=== PATIENT | male | born 1990 | race Caucasian/White ===

== ENCOUNTER 2020-06-17 15:53 | Emergency (ER) | payer OTHER, SELFPAY ==
--- NOTE | 2020-06-17 | CT_ITS ---
EXAMINATION: CT HEAD WITHOUT CONTRAST CT CERVICAL SPINE WITHOUT CONTRAST CLINICAL INFORMATION: Fall. Trauma to the head COMPARISON: CT head 03/16/2020 TECHNIQUE: Imaging was performed from the skull base to vertex without intravenous administration of contrast. In addition, helical noncontrast CT imaging was acquired through the cervical spine and source images were reviewed along with axial reconstructions and sagittal and coronal MPRs. [This CT examination was performed using dose optimization techniques as appropriate, variously including the following: *Automated exposure control *Adjustment of mA and/or kV according to patient size (this includes techniques or standardized protocols for targeted exams where dose is matched to indication/reason for exam; i.e. extremities or head) *Use of iterative reconstruction technique] DLP: 866 mGy-cm FINDINGS: HEAD: No intracranial mass, hemorrhage, or midline shift is visualized. The ventricles and sulci are age-appropriate. No extra-axial collections are identified. The paranasal sinuses and mastoid air cells are well aerated. CERVICAL SPINE: There is no evidence of acute cervical spine fracture. Vertebral bodies remain normal in height. Cervical vertebrae have normal alignment. The cervical disc heights are normal. The facet joints are normal. No pre- or paravertebral soft tissue abnormality is identified. Limited assessment of the lung apices is unremarkable. IMPRESSION: 1. No acute intracranial pathology. 2. No CT evidence of acute cervical spine fracture or traumatic subluxation
[2020-06-17 16:06] VITALS: BP 135/82; PULSE 120; PULSE 130; RESP 20; TEMP 37.4; O2SAT 96; O2SAT 99; BMI 35.6
[2020-06-17 16:17] VITALS: BP 135/81; PULSE 116; RESP 18; TEMP 37.3; O2SAT 100; BMI 35.6
--- NOTE | 2020-06-17 16:54 | ED_ITS ---
HPI - Seizure General Chief Complaint: Seizure Stated Complaint: seizure Time Seen by Provider: 06/17/20 16:32 Source: EMS and other (staff at facility ) Mode of arrival: ambulatory Limitations: language barrier, altered mental status (minimally verbal which is his baseline ) and physical limitation History of Present Illness complaint: seizure Onset (ago): hour(s) (1.5 hours ago ) Description of Episode: loss of consciousness, tonic-clonic movement and bladder incontinence Duration of episode: 1 -: minutes(s) Witnessed: Yes - by Bystander Trauma: Yes Seizure History: Yes Place: Home Associated symptoms: denies other symptoms Treatments prior to arrival: none Related Data Allergies Allergy/AdvReac Type Severity Reaction Status Date / Time No Known Allergies Allergy Unverified 06/03/20 17:21 [No Known Allergies*] Review of Systems Review of Systems: Yes Unobtainable due to mental condition [facility] Past Medical History Medical History Autism Seizures Social History Social History Advance Directives: No Advance Directives Information Provided: No Physical Exam Vital Signs and I&O and Narrative: Vital Signs and I&O: Vital Signs Temp 99.5 F 06/17/20 18:50 Pulse 109 H 06/17/20 18:50 Resp 16 06/17/20 18:50 BP 155/99 H 06/17/20 18:50 Pulse Ox 94 06/17/20 18:50 Intake & Output 06/17/20 06/17/20 06/18/20 06:59 18:59 06:59 Weight 112.829 kg Body Mass Index 35.6 Course Course Hospital Course: No further seizure activity here. No established etiology at this time. No signs of infection. He has a seizure record with him and has several seizures per year per his records. He is starting to get overstimulated here and his staff member from his facility would like to take him home. Metabolic workup unremarkable and CT head/neck were negative. Stable for discharge with plan to follow up with his Neurologist. MDM - Seizure MDM Narrative Medical decision making narrative: known seizure disorder - on Trileptal and Vimpat. unlikely he missed a dose at facility. will r/o infectious etiology Differential Diagnosis Differential diagnosis: Likely intractable seizure disorder, generalized seizure and epileptic seizure Medical Records Attestation: I reviewed the patient's medical records. Lab Data Result diagrams: 06/17/20 17:30 06/17/20 17:30 Labs: Lab Results 06/17/20 06/17/20 06/17/20 Range/Units 17:30 17:30 17:56 WBC 11.4 H (4.8-10.8) X10*3/uL RBC 6.07 H (4.60-5.80) X10*6/uL Hgb 16.0 (14.0-18.0) g/dl Hct 47.1 (42-52) % MCV 77.6 L (80-98) fL MCH 26.4 L (27.0-33.0) pg MCHC 34.0 (31.0-36.0) g/dl RDW 13.2 (11.0-16.0) % Plt Count 261 (160-400) X10*3/uL MPV 9.2 L (9.4-12.4) fL Immature Gran % (Auto) 1.1 H (0.0-0.4) % Neut % (Auto) 84.0 H (45-73) % Lymph % (Auto) 8.1 L (20-40) % [place] % (Auto) 6.0 (2-11) % Eos % (Auto) 0.4 (0-4) % Baso % (Auto) 0.4 (0-2) % Neut # (Auto) 9.6 H (2.0-8.3) X10*3/uL Lymph # (Auto) 0.9 L (1.2-4.9) X10*3/uL [place] # (Auto) 0.7 (0.1-1.2) X10*3/uL Eos # (Auto) 0.0 (0.0-0.4) X10*3/uL Baso # (Auto) 0.1 (0.0-0.2) X10*3/uL Abs Immat Gran (auto) 0.12 H (0.00-0.03) X10*3/uL Absolute Nucleated RBC 0.000 (0.0-0.012) X10*3/uL Nucleated RBC % (auto) 0.0 (0.0-0.2) /100WBC Sodium 134 L (135-145) mmol/L Potassium 3.8 (3.3-5.1) mmol/l Chloride 102 (96-108) mmol/L Carbon Dioxide 24 (22-29) mmol/L Anion Gap 12 (12-20) BUN 11 (9-16) mg/dL Creatinine 0.94 (0.5-1.4) mg/dL Estim Creat Clear Calc 143.2 Estimated GFR > 60 POC Glucose (60-115) mg/dL Random Glucose 108 (60-115) mg/dL Calcium 9.0 (8.4-10.2) mg/dL Total Creatine Kinase 117 (38-174) U/L Urine Color YELLOW Urine Appearance CLEAR Urine pH 6.0 (5.0-8.0) Ur Specific [place] 1.015 (1.005-1.025) Urine Protein NEG (NEG-TRACE) MG/DL Urine Glucose (UA) NEG (NEG) MG/DL Urine Ketones NEG (NEG) MG/DL Urine Blood TRACE (NEG) Urine Nitrite NEG (NEG) Ur Leukocyte Esterase NEG (NEG) 06/17/20 Range/Units 18:53 WBC (4.8-10.8) X10*3/uL RBC (4.60-5.80) X10*6/uL Hgb (14.0-18.0) g/dl Hct (42-52) % MCV (80-98) fL MCH (27.0-33.0) pg MCHC (31.0-36.0) g/dl RDW (11.0-16.0) % Plt Count (160-400) X10*3/uL MPV (9.4-12.4) fL Immature Gran % (Auto) (0.0-0.4) % Neut % (Auto) (45-73) % Lymph % (Auto) (20-40) % [place] % (Auto) (2-11) % Eos % (Auto) (0-4) % Baso % (Auto) (0-2) % Neut # (Auto) (2.0-8.3) X10*3/uL Lymph # (Auto) (1.2-4.9) X10*3/uL [place] # (Auto) (0.1-1.2) X10*3/uL Eos # (Auto) (0.0-0.4) X10*3/uL Baso # (Auto) (0.0-0.2) X10*3/uL Abs Immat Gran (auto) (0.00-0.03) X10*3/uL Absolute Nucleated RBC (0.0-0.012) X10*3/uL Nucleated RBC % (auto) (0.0-0.2) /100WBC Sodium (135-145) mmol/L Potassium (3.3-5.1) mmol/l Chloride (96-108) mmol/L Carbon Dioxide (22-29) mmol/L Anion Gap (12-20) BUN (9-16) mg/dL Creatinine (0.5-1.4) mg/dL Estim Creat Clear Calc Estimated GFR POC Glucose 101 (60-115) mg/dL Random Glucose (60-115) mg/dL Calcium (8.4-10.2) mg/dL Total Creatine Kinase (38-174) U/L Urine Color Urine Appearance Urine pH (5.0-8.0) Ur Specific [place] (1.005-1.025) Urine Protein (NEG-TRACE) MG/DL Urine Glucose (UA) (NEG) MG/DL Urine Ketones (NEG) MG/DL Urine Blood (NEG) Urine Nitrite (NEG) Ur Leukocyte Esterase (NEG) Discharge Plan Discharge Clinical Impression: Epileptic seizure Qualifiers: Epilepsy type: other generalized Intractability: not intractable Status epilepticus: without status epilepticus Qualified Code(s): G40.409 - Other generalized epilepsy and epileptic syndromes, not intractable, without status epilepticus Patient Disposition: Xfer LTC Instructions: Epilepsy (ED) Additional Instructions: Follow up with your Neurologist this week. Continue to take your anti-seizure medications as prescribed. Return to the ER if seizures recur.
--- NOTE | 2020-06-17 17:34 | PC.NURSE ---
REPORTING BELLY PAIN 10/10 MLP AWARE.
[2020-06-17] MEDS: Morphine Sulfate 4 MG/ML CARTRIDGE IVPUSH (17:41)
[2020-06-17] MEDS: OXcarbazepine 300 MG TABLET 600 MG PO (17:42)
[2020-06-17] MEDS: 0.9 % Sodium Chloride 1,000 ML 999 ML IVCONT (17:43)
[2020-06-17 17:44] LABS: MANUAL DIFF FLAG NO
[2020-06-17 17:49] LABS: Basophils Absolute Auto 0.1 X10*3/uL (0.0-0.2); Basophils Percent Auto 0.4 % (0-2); Eosinophils Percent Auto 0.4 % (0-4); Hematocrit 47.1 % (42-52); Imm Gran Abs Auto 0.12 X10*3/uL (0.00-0.03); Imm Gran Pct Auto 1.1 % (0.0-0.4); Lymphocytes Absolute Auto 0.9 X10*3/uL (1.2-4.9); Lymphocytes Percent Auto 8.1 % (20-40); Mean Corpuscular Hemoglobin 26.4 pg (27.0-33.0); Mean Corpuscular Volume 77.6 fL (80-98); Mean Platelet Volume 9.2 fL (9.4-12.4); Monocytes Absolute Auto 0.7 X10*3/uL (0.1-1.2); Neutrophils Absolute Auto 9.6 X10*3/uL (2.0-8.3); Platelet Count 261 X10*3/uL (160-400); Red Blood Count 6.07 X10*6/uL (4.60-5.80); Red Cell Distribution Width 13.2 % (11.0-16.0); White Blood Count 11.4 X10*3/uL (4.8-10.8)
[2020-06-17 18:13] LABS: Anion Gap 12 (12-20); Blood Urea Nitrogen 11 mg/dL (9-16); Carbon Dioxide 24 mmol/L (22-29); Chloride 102 mmol/L (96-108); Creatinine Clr Calc Pharmacy 143.2; Estimated Glomerular Filt Rate > 60; Glucose Random 108 mg/dL (60-115); Potassium 3.8 mmol/l (3.3-5.1); Sodium 134 mmol/L (135-145)
[2020-06-17 18:43] LABS: Glucose Urine UA NEG (NEG); Leukocyte Esterase Urine NEG (NEG); Nitrite Urine NEG (NEG); Specific Gravity - Urine 1.015 (1.005-1.025); UACC Culture Trigger NO; Urine Blood TRACE (NEG); Urine Ketones NEG (NEG); Urine Protein NEG (NEG-TRACE)
[2020-06-17 18:46] LABS: Appearance Urine CLEAR; Color Urine YELLOW
[2020-06-17 18:50] VITALS: BP 155/99; PULSE 109; RESP 16; TEMP 37.5; O2SAT 94
[2020-06-17 18:57] LABS: Glucose, Whole Blood 101 mg/dL (60-115)
[2020-06-17] MEDS: Lacosamide 100 MG TABLET PO (19:19)
== END 2020-06-17 19:24 ==
PROVIDERS: Physician Assistant; Emergency Provider Emergency Medicine Emergency Medical Services; PCP Internal Medicine
DX: G40.409 Other generalized epilepsy and epileptic syndromes, not intractable, without status epilepticus (principal); Z79.899 Other long term (current) drug therapy
CPT/HCPCS: 36415; 70450; 72125; 80048; 81003; 82550; 82947; 85025; 96361; 96374; 99283; 99284

== ENCOUNTER 2021-04-28 09:34 | Emergency (ER) | payer OTHER, SELFPAY ==
--- NOTE | 2021-04-28 | ECG_ITS ---
Test Reason : SEIZURE Blood Pressure : / mmHG Vent. Rate : 096 BPM Atrial Rate : 096 BPM P-R Int : 152 ms QRS Dur : 096 ms QT Int : 342 ms P-R-T Axes : 047 -24 026 degrees QTc Int : 432 ms Normal sinus rhythm Minimal voltage criteria for LVH, may be normal variant Borderline ECG When compared with ECG of 17-AUG-2018 12:28, No significant change was found Referred By: Generic ED Physician Electronically Signed By:OLGA NAVARRO MD
--- NOTE | ~2021-04-28 | CT_ITS ---
EXAMINATION: CT HEAD WITHOUT CONTRAST CLINICAL INFORMATION: Head injury, seizure. COMPARISON: None TECHNIQUE: Contiguous axial imaging was performed from the skull base to vertex without intravenous administration of contrast. This CT examination was performed using dose optimization techniques as appropriate, variously including the following: *Automated exposure control *Adjustment of mA and/or kV according to patient size (this includes techniques or standardized protocols for targeted exams where dose is matched to indication/reason for exam; i.e. extremities or head) *Use of iterative reconstruction technique DLP: 845 mGy-cm FINDINGS: There is no evidence of acute intracranial hemorrhage or territorial infarction. No abnormal mass effect or midline shift is seen. Reeves to white matter differentiation is well preserved. No extra-axial fluid collections are identified. The ventricles are normal in size. There is no abnormal attenuation within the brain parenchyma. The osseous structures and soft tissues are normal. The mastoid air cells and visualized portions of the paranasal sinuses are well aerated. CT/CT head/brain wo con IMPRESSION: No acute intracranial process seen
[2021-04-28 10:27] VITALS: BP 119/88; PULSE 84; RESP 16; TEMP 36.9; O2SAT 99; BMI 33.8
--- NOTE | 2021-04-28 10:48 | ED.GENADULT ---
HPI - General Adult General Chief complaint: Seizure Stated complaint: fall Time Seen by Provider: 04/28/21 10:48 History of Present Illness HPI narrative: 30-year-old male with past medical history of seizure. Patient is a [facility] patient was going to the bathroom to take a shower, when he fell. Staff member found patient laying between the toilet bowl and the wall where he had about 1 minutes seizure. Patient had left side of his head and right arm. Patient denies LOC. complaining of headache. Patient is very difficult to get any history from. [facility] staff with patient and reports that patient is acting himself. No other neural deficits Related Data Home Medications Medication Instructions Recorded Confirmed acetaminophen 325 mg tablet (Mapap 650 mg PO Q6H PRN 04/28/21 04/28/21 (acetaminophen)) aripiprazole 2 mg tablet (Abilify) 2 mg PO DAILY@14 04/28/21 04/28/21 aripiprazole 5 mg tablet (Abilify) 5 mg PO DAILY 04/28/21 04/28/21 benztropine 0.5 mg tablet 0.5 mg PO BID 04/28/21 04/28/21 buspirone 10 mg tablet 20 mg PO TID 04/28/21 04/28/21 [id number]-[id number] 1 tab PO Q6H PRN 04/28/21 04/28/21 50 mg-325 mg-40 mg tablet clonidine HCl 0.1 mg tablet 0.1 mg PO BID 04/28/21 04/28/21 diazepam 10 mg tablet (Valium) 10 mg PO USEASDIRECTD PRN 04/28/21 04/28/21 lacosamide 100 mg tablet 100 mg PO BID 04/28/21 04/28/21 multivitamin 1 tab PO DAILY 04/28/21 04/28/21 oxcarbazepine 600 mg tablet 600 mg PO TID 04/28/21 04/28/21 (Trileptal) Allergies Allergy/AdvReac Type Severity Reaction Status Date / Time No Known Allergies Allergy Unverified 06/03/20 17:21 [No Known Allergies*] Review of Systems Review of Systems: Constitutional : No Weight loss, No Fever, No Chills, No Night Sweats, No Fatigue, No Malaise ENT/Mouth : No Hearing loss, No Ear Pain, No Nasal Congestion, No Sinus Pain, No Hoarseness, No sore throat, No Rhinorrhea, No Swallowing Difficulty Eyes: No Eye Pain, No Swelling, No Redness, No Foreign Body, No Discharge, No Vision Changes Cardiovascular : No Chest Pain, No SOB, No Dyspnea on Exertion, No Orthopnea, No Edema, No Palpitations Respiratory : No Cough, No Sputum, No Wheezing, No Smoke Exposure, No Dyspnea Gastrointestinal : No Nausea, No Vomiting, No Diarrhea, No Constipation, No abdominal Pain, No Hematochezia, No Melena Genitourinary : no irregular bleeding, No Dysuria, No Urinary Frequency, No Hematuria, No Urinary Incontinence, No Urgency, No Flank Pain, No Urinary Flow Changes, No Hesitancy, penile pain and discharge Musculoskeletal : No joint pain, No Myalgias, No Joint Swelling Skin : No Skin Lesions, No rash Neuro : No Weakness, No Numbness, No Paresthesias, No Loss of Consciousness, No Dizziness, No Headache Psych : No Anxiety/Panic, No Depression, No SI/HI/AH/VH, No Social Issues, Heme/Lymph: No Bruising, No Bleeding,No Lymphadenopathy Endocrine : No Polyuria, No Polydipsia, No Temperature Intolerance PMFSH Past Medical History Medical History Autism Seizures Social History Social History Alcohol intake: never Patient Tobacco Use Status: Never used Tobacco Use of substances other than those prescribed or required for medical reasons: No Advance Directives: No Advance Directives Information Provided: Yes Physical Exam Vital Signs: Vital Signs: Last Vital Signs Temp 99.1 F 04/28/21 10:54 Pulse 95 04/28/21 10:54 Resp 24 H 04/28/21 10:54 BP 127/80 04/28/21 10:54 Pulse Ox 99 04/28/21 10:54 Body Mass Index 33.8 Const: General: healthy appearing, no acute distress and well developed Nutritional Appearance: well nourished Orientation/consciousness: oriented to person HENMT: Head: Yes normal to inspection, Yes normocephalic and Yes atraumatic General nose exam: Normal external nose present Face and sinus: Yes normal facial exam Mouth: Normal oral and palatal mucosa present Throat: Yes posterior oropharynx normal Eyes: General: appearance normal, both eyes and all related structures Eyelids: Yes eyelids normal Conjunctivae: conjunctivae normal Sclerae: sclerae normal Corneas: corneas normal Pupils: Equal, round and reactive pupils present EOM: EOMs intact bilaterally Neck: Neck: Yes normal visual inspection, Yes full ROM and Yes trachea midline Thyroid: Thyroid normal Chest: Chest palpation & inspection: normal inspection of the chest and normal palpation of entire chest wall Resp: Effort & Inspection: normal respiratory effort Auscultation: clear to auscultation bilaterally Cardio: Rate: regular rate Rhythm: regular rhythm GI: Inspection: Yes normal to inspection and No distended Palpation (GI): No hepatosplenomegaly present Auscultation: normal bowel sounds : General: Yes Bimanual renal exam normal bilaterally and Yes no CVA tenderness Back/Spine/Pelvis: Back: no CVA tenderness Cervical Spine: cervical ROM normal Thoracic/Lumbar Spine: thoracic and lumbar spine normal to inspection Pelvis: no pain with anterior-posterior compression Skin: General skin exam: elasticity normal, turgor normal and dry skin Neuro: General: oriented to person Cranial nerves: Yes Equal, round and reactive pupils present Course Course Course Narrative: 30 years old male from [facility] after seizure activity that was witnessed by staff member. Patient did hit his head will get an CT of the head. Right upper arm abrasion. Will get basic labs. Reevaluation(s) Reevaluation #1: CT of the had normal, all labs normal. Patient is acting normal per staff member. We will send him back to [facility] and patient can follow up with his neurologist for possible med adjustment. This was his 2nd seizure in the last 3 months. Medical Decision Making Lab Data Result diagrams: 04/28/21 11:14 04/28/21 11:14 Labs: Lab Results 04/28/21 04/28/21 04/28/21 Range/Units 11:14 11:14 11:17 WBC 9.5 (4.8-10.8) X10*3/uL RBC 6.04 H (4.60-5.80) X10*6/uL Hgb 15.9 (14.0-18.0) g/dl Hct 47.2 (42-52) % MCV 78.1 L (80-98) fL MCH 26.3 L (27.0-33.0) pg MCHC 33.7 (31.0-36.0) g/dl RDW 13.4 (11.0-16.0) % Plt Count 264 (160-400) X10*3/uL MPV 9.1 L (9.4-12.4) fL Immature Gran % (Auto) 0.8 H (0.0-0.4) % Neut % (Auto) 85.3 H (45-73) % Lymph % (Auto) 7.8 L (20-40) % [place] % (Auto) 5.5 (2-11) % Eos % (Auto) 0.2 (0-4) % Baso % (Auto) 0.4 (0-2) % Lymph # (Auto) 0.7 L (1.2-4.9) X10*3/uL [place] # (Auto) 0.5 (0.1-1.2) X10*3/uL Eos # (Auto) 0.0 (0.0-0.4) X10*3/uL Baso # (Auto) 0.0 (0.0-0.2) X10*3/uL Abs Immat Gran (auto) 0.08 H (0.00-0.03) X10*3/uL Absolute Neuts (auto) 8.1 (2.0-8.3) X10*3/uL Absolute Nucleated RBC 0.000 (0.0-0.012) X10*3/uL Nucleated RBC % (auto) 0.0 (0.0-0.2) /100WBC Sodium 135 (135-145) mmol/L Potassium 4.4 (3.3-5.1) mmol/L Chloride 103 (96-108) mmol/L Carbon Dioxide 23 (22-29) mmol/L Anion Gap 13 (12-20) BUN 11 (9-16) mg/dL Creatinine 0.85 (0.5-1.4) mg/dL Estim Creat Clear Calc 152.8 Estimated GFR > 60 POC Glucose 95 (60-115) mg/dL Random Glucose 97 (60-115) mg/dL Calcium 9.7 D (8.4-10.2) mg/dL Urine Color Urine Appearance Urine pH (5.0-8.0) Ur Specific [place] (1.005-1.025) Urine Protein (NEG-TRACE) MG/DL Urine Glucose (UA) (NEG) MG/DL Urine Ketones (NEG) MG/DL Urine Blood (NEG) Urine Nitrite (NEG) Ur Leukocyte Esterase (NEG) Urine RBC (0) /HPF Urine WBC (0-4) /HPF Ur Squamous Epith Cells /LPF Urine Bacteria /LPF 04/28/21 Range/Units 11:44 WBC (4.8-10.8) X10*3/uL RBC (4.60-5.80) X10*6/uL Hgb (14.0-18.0) g/dl Hct (42-52) % MCV (80-98) fL MCH (27.0-33.0) pg MCHC (31.0-36.0) g/dl RDW (11.0-16.0) % Plt Count (160-400) X10*3/uL MPV (9.4-12.4) fL Immature Gran % (Auto) (0.0-0.4) % Neut % (Auto) (45-73) % Lymph % (Auto) (20-40) % [place] % (Auto) (2-11) % Eos % (Auto) (0-4) % Baso % (Auto) (0-2) % Lymph # (Auto) (1.2-4.9) X10*3/uL [place] # (Auto) (0.1-1.2) X10*3/uL Eos # (Auto) (0.0-0.4) X10*3/uL Baso # (Auto) (0.0-0.2) X10*3/uL Abs Immat Gran (auto) (0.00-0.03) X10*3/uL Absolute Neuts (auto) (2.0-8.3) X10*3/uL Absolute Nucleated RBC (0.0-0.012) X10*3/uL Nucleated RBC % (auto) (0.0-0.2) /100WBC Sodium (135-145) mmol/L Potassium (3.3-5.1) mmol/L Chloride (96-108) mmol/L Carbon Dioxide (22-29) mmol/L Anion Gap (12-20) BUN (9-16) mg/dL Creatinine (0.5-1.4) mg/dL Estim Creat Clear Calc Estimated GFR POC Glucose (60-115) mg/dL Random Glucose (60-115) mg/dL Calcium (8.4-10.2) mg/dL Urine Color YELLOW Urine Appearance CLEAR Urine pH 6.5 (5.0-8.0) Ur Specific [place] 1.015 (1.005-1.025) Urine Protein NEG (NEG-TRACE) MG/DL Urine Glucose (UA) NEG (NEG) MG/DL Urine Ketones NEG (NEG) MG/DL Urine Blood TRACE (NEG) Urine Nitrite NEG (NEG) Ur Leukocyte Esterase NEG (NEG) Urine RBC 0-2 (0) /HPF Urine WBC 0 (0-4) /HPF Ur Squamous Epith Cells TRACE /LPF Urine Bacteria TRACE /LPF Imaging Data CT scan - head: Radiologist's impression: FINDINGS: There is no evidence of acute intracranial hemorrhage or territorial infarction. No abnormal mass effect or midline shift is seen. [place] to white matter differentiation is well preserved. No extra-axial fluid collections are identified. The ventricles are normal in size. There is no abnormal attenuation within the brain parenchyma. The osseous structures and soft tissues are normal. The mastoid air cells and visualized portions of the paranasal sinuses are well aerated. ? ECG Data Interpretation: Heart rate 96, normal sinus, GA 0.15, QTC 432 no significant change found when compared with EKG from August 17, 2018 Discharge Plan Discharge Clinical Impression: Epileptic seizure Qualifiers: Epilepsy type: unspecified Intractability: not intractable Status epilepticus: without status epilepticus Qualified Code(s): G40.909 - Epilepsy, unspecified, not intractable, without status epilepticus Patient Disposition: Home, Self-Care Instructions: Epilepsy (ED) Additional Instructions: You were seen here today for seizure. This was your 2nd seizure in the last 3 months. Please follow-up with your neurologist and and 2-3 day for possible med adjustment. Your CT of the head was normal, your EKG was normal, as well as your lab work. You may return to emergency department if you have any concerning symptoms. Prescriptions: No Action multivitamin Tablet 1 tab PO DAILY RF: 0 clonidine HCl [Catapres] 0.1 mg Tablet 0.1 mg PO BID RF: 0 acetaminophen [Mapap (acetaminophen)] 325 mg Tablet 650 mg PO Q6H PRN (Reason: Pain) RF: 0 benztropine [Cogentin] 0.5 mg Tablet 0.5 mg PO BID RF: 0 [id number] [Fioricet] 50-325-40 mg Tablet 1 tab PO Q6H PRN (Reason: Headache) RF: 0 buspirone [BuSpar] 10 mg Tablet 20 mg PO TID RF: 0 oxcarbazepine [Trileptal] 600 mg Tablet 600 mg PO TID RF: 0 diazepam [Valium] 10 mg Tablet 10 mg PO USEASDIRECTD PRN (Reason: PRIOR TO MD APPT) RF: 0 aripiprazole [Abilify] 5 mg Tablet 5 mg PO DAILY RF: 0 aripiprazole [Abilify] 2 mg Tablet 2 mg PO DAILY@14 RF: 0 lacosamide 100 mg Tablet 100 mg PO BID RF: 0 Interventions: ED Discharge Assessment Last Done: 04/28/21 12:39 Discharge Date/Time: 04/28/21 12:39
[2021-04-28 10:54] VITALS: BP 127/80; PULSE 95; RESP 24; TEMP 37.3; O2SAT 99
[2021-04-28 11:22] LABS: Glucose, Whole Blood 95 mg/dL (60-115)
[2021-04-28 11:23] LABS: MANUAL DIFF FLAG NO
[2021-04-28 11:24] LABS: Basophils Percent Auto 0.4 % (0-2); Eosinophils Percent Auto 0.2 % (0-4); Hematocrit 47.2 % (42-52); Hemoglobin 15.9 g/dl (14.0-18.0); Imm Gran Abs Auto 0.08 X10*3/uL (0.00-0.03); Imm Gran Pct Auto 0.8 % (0.0-0.4); Lymphocytes Absolute Auto 0.7 X10*3/uL (1.2-4.9); Lymphocytes Percent Auto 7.8 % (20-40); Mean Corpuscular HGB Conc 33.7 g/dl (31.0-36.0); Mean Corpuscular Hemoglobin 26.3 pg (27.0-33.0); Mean Corpuscular Volume 78.1 fL (80-98); Mean Platelet Volume 9.1 fL (9.4-12.4); Monocytes Absolute Auto 0.5 X10*3/uL (0.1-1.2); Monocytes Percent Auto 5.5 % (2-11); Neutrophils Absolute Auto 8.1 X10*3/uL (2.0-8.3); Neutrophils Percent Auto 85.3 % (45-73); Platelet Count 264 X10*3/uL (160-400); Red Blood Count 6.04 X10*6/uL (4.60-5.80); Red Cell Distribution Width 13.4 % (11.0-16.0); White Blood Count 9.5 X10*3/uL (4.8-10.8)
[2021-04-28 11:46] LABS: Anion Gap 13 (12-20); Blood Urea Nitrogen 11 mg/dL (9-16); Calcium 9.7 mg/dL (8.4-10.2); Carbon Dioxide 23 mmol/L (22-29); Chloride 103 mmol/L (96-108); Creatinine Clr Calc Pharmacy 152.8; Estimated Glomerular Filt Rate > 60; Glucose Random 97 mg/dL (60-115); Potassium 4.4 mmol/L (3.3-5.1); Sodium 135 mmol/L (135-145)
[2021-04-28 11:56] LABS: Glucose Urine UA NEG (NEG); Leukocyte Esterase Urine NEG (NEG); Nitrite Urine NEG (NEG); PH 6.5 (5.0-8.0); Specific Gravity - Urine 1.015 (1.005-1.025); UACC Culture Trigger NO; Urine Blood TRACE (NEG); Urine Ketones NEG (NEG); Urine Protein NEG (NEG-TRACE)
[2021-04-28 12:01] LABS: Appearance Urine CLEAR; Color Urine YELLOW
[2021-04-28 12:10] LABS: Bacteria Urine TRACE /LPF; RBC Urine 0-2 /HPF (0); Squamous Epithelial Cell Urine TRACE /LPF; WBC Urine 0 /HPF (0-4)
== END 2021-04-28 12:39 | disposition home or self-care (01) ==
PROVIDERS: Nurse Practitioner Family; Emergency Provider Emergency Medicine; PCP Internal Medicine
DX: G40.909 Epilepsy, unspecified, not intractable, without status epilepticus (principal); S40.811A Abrasion of right upper arm, initial encounter; W17.89XA Other fall from one level to another, initial encounter; F84.0 Autistic disorder; Y93.E8 Activity, other personal hygiene; Y92.041 Bathroom in boarding-house as the place of occurrence of the external cause; Y99.9 Unspecified external cause status; Z79.899 Other long term (current) drug therapy
CPT/HCPCS: 36415; 70450; 80048; 81001; 81003; 82947; 85025; 93005; 99284

== ENCOUNTER 2021-04-28 13:18 | Observation (INO) | payer OTHER, SELFPAY ==
[2021-04-28] VITALS (7 sets, daily range): BP systolic 127–170; BP diastolic 77–91; PULSE 110–134; RESP 14–20; TEMP 36.1–37.3; O2SAT 96–97; BMI 33.7; BMI 33.0
--- NOTE | 2021-04-28 | ECG_ITS ---
Test Reason : tachycardic Blood Pressure : / mmHG Vent. Rate : 119 BPM Atrial Rate : 119 BPM P-R Int : 154 ms QRS Dur : 102 ms QT Int : 326 ms P-R-T Axes : 000 205 144 degrees QTc Int : 458 ms Poor data quality, interpretation may be adversely affected -limb lead reversal Sinus tachycardia Right superior axis deviation Nonspecific ST and T wave abnormality Abnormal ECG When compared with ECG of same day, apart of limb lead reversal no other changes. Referred By: Sierra Rod Electronically Signed By:KIRILL VALLE
--- NOTE | 2021-04-28 14:18 | ED.GENADULT ---
HPI - General Adult General Chief complaint: Seizure Stated complaint: seizure Time Seen by Provider: 04/28/21 14:14 History of Present Illness HPI narrative: 30-year-old male here today for 2nd witnessed seizure. Patient has had his 1st seizure this morning fell and hit his head seen in the emergency department, lab work and CT of the head normal. Patient had no seizure while in the emergency department. Staff member witnessed patient having a seizure when getting into the van. Patient slumped over, had tremors and bit his tongue. The whole seizure lasted 35 seconds. Patient is on Trileptal 3 times a day. Dose of Abilify was increased recently, 5 mg every morning and 2mg added at 2:00 p.m. patient is on Trileptal 600 mg 3 times a day and lacosamide 100 mg 2 times a day. Patient sees neurologist Dr. Reese Hemphill in [place]. No new changes in his medication. Related Data Home Medications Medication Instructions Recorded Confirmed acetaminophen 325 mg tablet (Mapap 650 mg PO Q6H PRN 04/28/21 04/28/21 (acetaminophen)) aripiprazole 2 mg tablet (Abilify) 2 mg PO DAILY@14 04/28/21 04/28/21 aripiprazole 5 mg tablet (Abilify) 5 mg PO DAILY 04/28/21 04/28/21 benztropine 0.5 mg tablet 0.5 mg PO BID 04/28/21 04/28/21 buspirone 10 mg tablet 20 mg PO TID 04/28/21 04/28/21 newqedtlvz-ohhmawdwviaej-amuojjfz 1 tab PO Q6H PRN 04/28/21 04/28/21 50 mg-325 mg-40 mg tablet clonidine HCl 0.1 mg tablet 0.1 mg PO BID 04/28/21 04/28/21 diazepam 10 mg tablet (Valium) 10 mg PO USEASDIRECTD PRN 04/28/21 04/28/21 lacosamide 100 mg tablet 100 mg PO BID 04/28/21 04/28/21 multivitamin 1 tab PO DAILY 04/28/21 04/28/21 oxcarbazepine 600 mg tablet 600 mg PO TID 04/28/21 04/28/21 (Trileptal) Allergies Allergy/AdvReac Type Severity Reaction Status Date / Time No Known Allergies Allergy Unverified 06/03/20 17:21 [No Known Allergies*] Review of Systems Review of Systems: Review of Systems Constitutional : No Weight loss, No Fever, No Chills, No Night Sweats, No Fatigue, No Malaise ENT/Mouth : No Hearing loss, No Ear Pain, No Nasal Congestion, No Sinus Pain, No Hoarseness, No sore throat, No Rhinorrhea, No Swallowing Difficulty, complaining frontal lobe pain headache Eyes: No Eye Pain, No Swelling, No Redness, No Foreign Body, No Discharge, No Vision Changes Cardiovascular : No Chest Pain, No SOB, No Dyspnea on Exertion, No Orthopnea, No Edema, No Palpitations Respiratory : No Cough, No Sputum, No Wheezing, No Smoke Exposure, No Dyspnea Gastrointestinal : No Nausea, No Vomiting, No Diarrhea, No Constipation, No abdominal Pain, No Hematochezia, No Melena Genitourinary : no irregular bleeding, No Dysuria, No Urinary Frequency, No Hematuria, No Urinary Incontinence, No Urgency, No Flank Pain, No Urinary Flow Changes, No Hesitancy, penile pain and discharge Musculoskeletal : No joint pain, No Myalgias, No Joint Swelling Skin : No Skin Lesions, No rash Neuro : No Weakness, No Numbness, No Paresthesias, No Loss of Consciousness, No Dizziness, No Headache Psych : No Anxiety/Panic, No Depression, No SI/HI/AH/VH, No Social Issues, Heme/Lymph: No Bruising, No Bleeding,No Lymphadenopathy Endocrine : No Polyuria, No Polydipsia, No Temperature Intolerance PMFSH Past Medical History Medical History Autism Seizures Social History Social History Alcohol intake: never Patient Tobacco Use Status: Never used Tobacco Use of substances other than those prescribed or required for medical reasons: No Advance Directives: No Advance Directives Information Provided: Yes Physical Exam Vital Signs: Vital Signs: Last Vital Signs Temp 98.4 F 04/28/21 15:48 Pulse 114 H 04/28/21 15:48 Resp 16 04/28/21 15:48 BP 129/84 04/28/21 15:48 Pulse Ox 96 04/28/21 15:48 Body Mass Index 33.7 Const: General: healthy appearing, no acute distress and well developed Nutritional Appearance: well nourished Orientation/consciousness: patient oriented x3 HENMT: Head: Yes normal to inspection, Yes normocephalic and Yes atraumatic General nose exam: Normal external nose present Face and sinus: Yes normal facial exam Mouth: Normal oral and palatal mucosa present Throat: Yes posterior oropharynx normal Eyes: General: appearance normal, both eyes and all related structures Neck: Neck: Yes normal visual inspection, Yes full ROM and Yes no JVD Chest: Chest palpation & inspection: normal inspection of the chest Resp: Effort & Inspection: normal respiratory effort Auscultation: clear to auscultation bilaterally Cardio: Rate: regular rate Rhythm: regular rhythm Heart sounds: S1 normal heart sound present, S2 normal heart sound present, no gallops, no murmurs and no rubs Peripheral pulses: Peripheral pulses 2+ throughout and radial pulses present GI: Inspection: Yes normal to inspection and No distended Palpation (GI): Soft to palpation, Firmness to palpation present (GI), nontender and no guarding Auscultation: normal bowel sounds : General: Yes no CVA tenderness Back/Spine/Pelvis: Back: no CVA tenderness Thoracic/Lumbar Spine: thoracic and lumbar spine normal to inspection Skin: General skin exam: elasticity normal, turgor normal and dry skin Neuro: General: patient oriented x3 and moves all extremities Extrem: General: Yes full ROM Shoulder/upper arm images: 1. Abrasion from fall earlier this morning Course Course Course Narrative: 30-year-old male with past medical history of seizures from [facility] was earlier seen in the ER and sent home. His CT scan and lab work was negative. Patient has been seen by Neurology in [place] no new seizure medications and no changes. Takes Trileptal 600 mg 3 times a day and lacosamide 100 mg 2 times a day. Recently they added Abilify 2 mg in the afternoon. No other changes. Patient reports to have headache Reevaluation(s) Reevaluation #1: Spoke to hospitalist for admission. Will add oxcarbazepine levels, COVID, will medicate patient with lorazepam. Awaiting admission Medical Decision Making Lab Data Labs: Lab Results 04/28/21 Range/Units 15:22 COVID-19 ([facility]) Negative (Negative) COVID-19 Clin Com See Note Discharge Plan Discharge Clinical Impression: Epileptic seizure Qualifiers: Epilepsy type: unspecified Intractability: not intractable Status epilepticus: without status epilepticus Qualified Code(s): G40.909 - Epilepsy, unspecified, not intractable, without status epilepticus Patient Disposition: Admitted As Inpatient
[2021-04-28] MEDS: LORazepam 2 MG/ML VIAL 1 MG IVPUSH (15:09)
--- NOTE | 2021-04-28 15:19 | PHA.MEDREC ---
Pharmacy Consult ? Medication Reconciliation Pharmacy has completed the medication reconciliation.
[2021-04-28 16:02] LABS: COVID-19 Test Negative (Negative)
[2021-04-28] MEDS: 0.9 % Sodium Chloride Flush 3 ML SYRINGE IVFLUSH ×2 (16:13→23:11)
[2021-04-28 17:48] LABS: Amphetamine Screen Urine Not Detected (Not Detect); Barbiturates, Urine Not Detected (Not Detect); Benzodiazepines Screen Urine Not Detected (Not Detect); Cannabinoid Screen Urine Not Detected (Not Detect); Cocaine Screen Urine Not Detected (Not Detect); Fentanyl, urine Not Detected (Not Detect); Opiate Screen Urine Not Detected (Not Detect); Phencyclidine Screen Urine Not Detected (Not Detect)
[2021-04-28] MEDS: Acetaminophen 325 MG TABLET 650 MG PO (19:11)
--- NOTE | 2021-04-28 19:21 | PC.NURSE ---
yelena smith at [phone]
--- NOTE | 2021-04-28 20:58 | PC.NURSE ---
Patient admitted under observation to Room 374 from ed via stretcher. Staff member at bedside from [facility]. Patient alert but does not answer most questions asked. At times, patient answers with 1-2 word answers. Per [facility] staff patient last had a seizure on February 20. Per [facility] staff, patient can take p.o. meds with water. Patient ambulated to bathroom, steady gait.
[2021-04-28] MEDS: OXcarbazepine 300 MG TABLET 600 MG PO (21:07)
[2021-04-28] MEDS: busPIRone HCl 10 MG TABLET 20 MG PO (21:07)
[2021-04-28] MEDS: Benztropine Mesylate 0.5 MG TABLET PO (21:08)
[2021-04-28] MEDS: Lacosamide 100 MG TABLET PO (21:08)
[2021-04-28] MEDS: cloNIDine HCL 0.1 MG TABLET PO (21:08)
--- NOTE | 2021-04-28 22:43 | PC.NURSE ---
Addendum entered by Xuan Juaregui RN 04/29/21 06:25: 0015; bp elevated 170/89, hr 123. Patient reported headache, prn fioricet administered. Dr. Rod notified regarding elevated bp. IV hydralazine ordered. Blood pressure monitored for an hour on 10 minute cycles. One hour later bp 131/65, hr 95 Addendum entered by Xuan Jauregui RN 04/28/21 23:35: Dr. Rod placed orders for STAT EKG, BMP, MAGNESIUM. EKG completed and picture sent to MD. Labs obtained and pending at this time. Original Note: Patient's heart rate has been running in 120's since patient arrived to unit. Patient was also tachy in ed prior to arriving to unit. Dr. Rod made aware.
[2021-04-29] VITALS (11 sets, daily range): BP systolic 128–165; BP diastolic 61–88; PULSE 90–118; RESP 16–18; TEMP 36.3–37.2; O2SAT 97–99
[2021-04-29] MEDS: Butalb/Acetamin/Caff 50/325/40 TABLET 1 TAB PO ×2 (00:05→09:00)
[2021-04-29 00:15] LABS: Anion Gap 16 (12-20); Blood Urea Nitrogen 11 mg/dL (9-16); Calcium 9.3 mg/dL (8.4-10.2); Carbon Dioxide 20 mmol/L (22-29); Chloride 104 mmol/L (96-108); Creatinine Clr Calc Pharmacy 135.1; Estimated Glomerular Filt Rate > 60; Glucose Random 155 mg/dL (60-115); Magnesium 2.2 mg/dL (1.6-2.6); Potassium 3.7 mmol/L (3.3-5.1); Sodium 136 mmol/L (135-145)
[2021-04-29] MEDS: hydrALAZINE HCl 20 MG/ML VIAL 5 MG IVPUSH (00:33)
[2021-04-29 00:52] LABS: Thyroid Stimulating Hormone 2.48 uIU/mL (0.32-4.0)
[2021-04-29 06:22] LABS: Hematocrit 44.3 % (42-52); Hemoglobin 15.1 g/dl (14.0-18.0); Mean Corpuscular HGB Conc 34.1 g/dl (31.0-36.0); Mean Corpuscular Hemoglobin 26.7 pg (27.0-33.0); Mean Corpuscular Volume 78.3 fL (80-98); Platelet Count 268 X10*3/uL (160-400); Red Blood Count 5.66 X10*6/uL (4.60-5.80); Red Cell Distribution Width 13.8 % (11.0-16.0); White Blood Count 8.2 X10*3/uL (4.8-10.8)
[2021-04-29 06:52] LABS: Anion Gap 13 (12-20); Blood Urea Nitrogen 12 mg/dL (9-16); Calcium 9.3 mg/dL (8.4-10.2); Carbon Dioxide 22 mmol/L (22-29); Chloride 106 mmol/L (96-108); Creatinine Clr Calc Pharmacy 156.5; Estimated Glomerular Filt Rate > 60; Glucose Random 95 mg/dL (60-115); Potassium 4.1 mmol/L (3.3-5.1); Sodium 137 mmol/L (135-145)
[2021-04-29] MEDS: Rivaroxaban 10 MG TABLET PO (09:00)
[2021-04-29] MEDS: Benztropine Mesylate 0.5 MG TABLET PO (09:00)
[2021-04-29] MEDS: ARIPiprazole 5 MG TABLET PO (09:00)
[2021-04-29] MEDS: OXcarbazepine 300 MG TABLET 600 MG PO ×2 (09:00→14:28)
[2021-04-29] MEDS: Multivitamin TABLET 1 TAB PO (09:01)
[2021-04-29] MEDS: busPIRone HCl 10 MG TABLET 20 MG PO ×2 (09:01→14:28)
[2021-04-29] MEDS: Lacosamide 100 MG TABLET PO (09:01)
[2021-04-29] MEDS: 0.9 % Sodium Chloride Flush 3 ML SYRINGE IVFLUSH (09:01)
[2021-04-29] MEDS: cloNIDine HCL 0.1 MG TABLET PO (09:01)
--- NOTE | 2021-04-29 10:08 | MHC.CM.PN ---
RANGEL 04/29, EMR REVIEWED PT ADMITTED FOR OBSERVATION FOR SEIZURE ACTIVITY, CM SPOKE W/PT'S [employer] CONNIE LUNDBERG AND REVIEWED MICKIE REPORTED PT RECEIVES ASSISTANCE W/CARE, HAS A PCP ABHI VARELA AND NEUROLOGIST IS CONNIE LEE AWARE PT WILL BE D/C'D TODAY AND W/TRANSPORT OR HAVE STAFF TRANSPORT PT UPON D/C, NO SPECOFIC REQUESTS FROM [facility] OTHER THAN D/C INSTRUCTIONS AND MEDS SENT TO [facility] WHICH IS PHARMACY ON FILE. D/C PLAN TODAY RETURN TO [facility], STAFF FOR TRANSPORT.
--- NOTE | 2021-04-29 11:54 | P.HPHOSP_ITS ---
History of Present Illness Date of Service: 04/28/21 Chief Complaint: Breakthrough seizures 30 years old male with PMH of autism, seizures who presented to the hospital after a witnessed seizure. Patient was in emergency air urine the morning for reported seizure at the facility which was not witnessed. He was evaluated the emergency and discharge back home but upon leaving and trying to go to the needed low seizure event witnessed by a staff member. He follows up with Dr. Aria Valerio as a neurologist. CT scan negative for any acute findings Patient could not provide any history as he is nonverbal. Admitted for further evaluation and treatment. Review of Systems Review of Systems: Nonverbal [facility] Medical History Autism Seizures Social History Alcohol intake: never Patient Tobacco Use Status: Never used Tobacco Use of substances other than those prescribed or required for medical reasons: No Advance Directives: No Advance Directives Information Provided: Yes service: No Current occupational status: disabled Meds Allergies Allergy/AdvReac Type Severity Reaction Status Date / Time No Known Allergies Allergy Unverified 06/03/20 17:21 [No Known Allergies*] Active Medications: Current Medications Generic Name Dose Route Start Last Admin Trade Name Freq PRN Reason Stop Dose Admin Acetaminophen 650 mg 04/28/21 15:24 04/28/21 19:11 Acetaminophen 325 Mg Tablet PO 650 mg Q6H PRN Administration Pain, Mild (Pain Scale 1-3) Acetaminophen/Butalbital/Caffeine 1 tab 04/28/21 15:24 04/29/21 09:00 Butalb/Acetamin/Caff 50/325/40 Tablet PO 1 tab Q6H PRN Administration Headache Aripiprazole 2 mg 04/29/21 14:00 Aripiprazole 2 Mg Tablet PO DAILY@14 GAB Aripiprazole 5 mg 04/29/21 09:00 04/29/21 09:00 Aripiprazole 5 Mg Tablet PO 5 mg DAILY GAB Administration Benztropine Mesylate 0.5 mg 04/28/21 21:00 04/29/21 09:00 Benztropine Mesylate 0.5 Mg Tablet PO 0.5 mg BID GAB Administration Buspirone HCl 20 mg 04/28/21 21:00 04/29/21 09:01 Buspirone Hcl 10 Mg Tablet PO 20 mg TID GAB Administration Clonidine HCl 0.1 mg 04/28/21 21:00 04/29/21 09:01 Clonidine Hcl 0.1 Mg Tablet PO 0.1 mg BID GAB Administration Protocol Lacosamide 100 mg 04/28/21 21:00 04/29/21 09:01 Lacosamide 100 Mg Tablet PO 100 mg BID GAB Administration Multivitamins/Vitamin C 1 tab 04/29/21 09:00 04/29/21 09:01 Multivitamin Tablet PO 1 tab DAILY GAB Administration Ondansetron HCl 4 mg 04/28/21 15:24 Ondansetron Hcl 4 Mg/2 Ml Vial IVPUSH Q8H PRN Nausea and Vomiting Oxcarbazepine 600 mg 04/28/21 21:00 04/29/21 09:00 Oxcarbazepine 300 Mg Tablet PO 600 mg TID [facility] Administration Pharmacy Consult 1 each 04/28/21 14:27 Consult Rx Perform Med Rec MISCELLANE ONCE PRN Consult order Rivaroxaban 10 mg 04/29/21 09:00 04/29/21 09:00 Rivaroxaban 10 Mg Tablet PO 10 mg DAILY GAB Administration Sodium Chloride 3 ml 04/28/21 16:00 04/29/21 09:01 0.9 % Sodium Chloride Flush 3 Ml Syringe IVFLUSH 3 ml QSHIFT [facility] Administration Home Medications Medication Instructions Recorded Confirmed Last Taken Type acetaminophen 325 mg tablet (Mapap 650 mg PO Q6H PRN 04/28/21 04/28/21 Unknown History (acetaminophen)) aripiprazole 2 mg tablet (Abilify) 2 mg PO DAILY@14 04/28/21 04/28/21 04/27/21 History aripiprazole 5 mg tablet (Abilify) 5 mg PO DAILY 04/28/21 04/28/21 04/28/21 History benztropine 0.5 mg tablet 0.5 mg PO BID 04/28/21 04/28/21 04/27/21 History buspirone 10 mg tablet 20 mg PO TID 04/28/21 04/28/21 04/28/21 History mtmzdoqdln-hwatrmhkkabcw-[id number] 1 tab PO Q6H PRN 04/28/21 04/28/21 Unknown History 50 mg-325 mg-40 mg tablet clonidine HCl 0.1 mg tablet 0.1 mg PO BID 0804/28/21 04/28/21 History diazepam 10 mg tablet (Valium) 10 mg PO USEASDIRECTD PRN 04/28/21 04/28/21 Unknown History lacosamide 100 mg tablet 100 mg PO BID 04/28/21 04/28/21 04/28/21 History multivitamin 1 tab PO DAILY 04/28/21 04/28/21 04/28/21 History oxcarbazepine 600 mg tablet 600 mg PO TID 04/28/21 04/28/21 04/28/21 History (Trileptal) Physical Exam Vital Signs and Narrative: Vital Signs: Last Vital Signs Temp 98.9 F 04/29/21 07:53 Pulse 95 04/29/21 09:01 Resp 17 04/29/21 07:53 BP 138/78 04/29/21 09:01 Pulse Ox 99 04/29/21 07:53 Body Mass Index 33.0 Const: Other: Constitutional : Alert,not in distress Neck : Normal inspection, Supple Cardiovascular : RRR, S1 S2, no lower extremity edema Respiratory : Good bilateral air entry, no crackles, wheezes or rhonchi Gastrointestinal: soft, lax, Normal bowel sounds, Non tender Skin : Warm, Dry Neurological : Alert , nonverbal, move all extremities, interactive Results Labs CBC and Chem 7: 04/29/21 06:00 04/29/21 06:00 Labs: Laboratory Results - last 24 hr 04/28/21 04/28/21 04/28/21 15:22 17:09 23:25 MCV MCH MCHC RDW Plt Count MPV Absolute Nucleated RBC Nucleated RBC % (auto) Anion Gap 16 Estim Creat Clear Calc 135.1 Estimated GFR > 60 Random Glucose 155 H D Calcium 9.3 Magnesium 2.2 TSH 2.48 Urine Opiates Screen Not Detected Urine Fentanyl Screen Not Detected Ur Barbiturates Screen Not Detected Ur Phencyclidine Scrn Not Detected Ur Amphetamines Screen Not Detected U Benzodiazepines Scrn Not Detected Urine Cocaine Screen Not Detected U Marijuana (THC) Screen Not Detected COVID-19 ([facility]) Negative COVID-19 Clin Com See Note 04/29/21 04/29/21 06:00 06:00 MCV 78.3 L MCH 26.7 L MCHC 34.1 RDW 13.8 Plt Count 268 MPV 9.0 L Absolute Nucleated RBC 0.000 Nucleated RBC % (auto) 0.0 Anion Gap 13 Estim Creat Clear Calc 156.5 Estimated GFR > 60 Random Glucose 95 D Calcium 9.3 Magnesium TSH Urine Opiates Screen Urine Fentanyl Screen Ur Barbiturates Screen Ur Phencyclidine Scrn Ur Amphetamines Screen U Benzodiazepines Scrn Urine Cocaine Screen U Marijuana (THC) Screen COVID-19 ([facility]) COVID-19 Clin Com Assessment and Plan (1) Breakthrough seizure: Status: Acute 30 years old male with PMH of autism, seizures who presented [facility] the hosp [facility] after a witnessed seizure. Breakthrough seizure continue his home medications to give a dose of Ativan continue p.r.n. diazepam to get Neurology evaluation Trileptal level pending Seizure precautions DVT PPX Xarelto Quality Stroke Does the patient have a stroke diagnosis?: No VTE Prior VTE?: No VTE Risk Level:: Medical - moderate - high VTE Device Contraindication: Treatment Not Indicated VTE Drug Contraindication: N/A - Med Ordered
--- NOTE | 2021-04-29 12:34 | PM.NEUROCN ---
History of Present Illness Data of Consult Service Date: 04/29/21 Primary Care Provider: DO KATIE Coon Reason for consult: 2 breakthrough seizures in a known epileptic patient Is a 30-year-old man with a history of autism and epilepsy followed by Dr. Cueva in [place], currently on oxcarbazepine in the course of my. He was admitted after 2 seizures. Now he is back to his baseline Review of Systems Review of Systems: Nonverbal PMFSH Past Medical History Medical History Autism Seizures Social History Social History Alcohol intake: never Patient Tobacco Use Status: Never used Tobacco Use of substances other than those prescribed or required for medical reasons: No Advance Directives: No Advance Directives Information Provided: Yes service: No Current occupational status: disabled Meds Allergies Allergy/AdvReac Type Severity Reaction Status Date / Time No Known Allergies Allergy Unverified 06/03/20 17:21 [No Known Allergies*] Active Medications: Current Medications Generic Name Dose Route Start Last Admin Trade Name Freq PRN Reason Stop Dose Admin Acetaminophen 650 mg 04/28/21 15:24 04/28/21 19:11 Acetaminophen 325 Mg Tablet PO 650 mg Q6H PRN Administration Pain, Mild (Pain Scale 1-3) Acetaminophen/Butalbital/Caffeine 1 tab 04/28/21 15:24 04/29/21 09:00 Butalb/Acetamin/Caff 50/325/40 Tablet PO 1 tab Q6H PRN Administration Headache Aripiprazole 2 mg 04/29/21 14:00 Aripiprazole 2 Mg Tablet PO DAILY@14 GAB Aripiprazole 5 mg 04/29/21 09:00 04/29/21 09:00 Aripiprazole 5 Mg Tablet PO 5 mg DAILY GAB Administration Benztropine Mesylate 0.5 mg 04/28/21 21:00 04/29/21 09:00 Benztropine Mesylate 0.5 Mg Tablet PO 0.5 mg BID GAB Administration Buspirone HCl 20 mg 04/28/21 21:00 04/29/21 09:01 Buspirone Hcl 10 Mg Tablet PO 20 mg TID GAB Administration Clonidine HCl 0.1 mg 04/28/21 21:00 04/29/21 09:01 Clonidine Hcl 0.1 Mg Tablet PO 0.1 mg BID GAB Administration Protocol Lacosamide 100 mg 04/28/21 21:00 04/29/21 09:01 Lacosamide 100 Mg Tablet PO 100 mg BID GAB Administration Multivitamins/Vitamin C 1 tab 04/29/21 09:00 04/29/21 09:01 Multivitamin Tablet PO 1 tab DAILY GAB Administration Ondansetron HCl 4 mg 04/28/21 15:24 Ondansetron Hcl 4 Mg/2 Ml Vial IVPUSH Q8H PRN Nausea and Vomiting Oxcarbazepine 600 mg 04/28/21 21:00 04/29/21 09:00 Oxcarbazepine 300 Mg Tablet PO 600 mg TID [facility] Administration Pharmacy Consult 1 each 04/28/21 14:27 Consult Rx Perform Med Rec MISCELLANE ONCE PRN Consult order Rivaroxaban 10 mg 04/29/21 09:00 04/29/21 09:00 Rivaroxaban 10 Mg Tablet PO 10 mg DAILY GAB Administration Sodium Chloride 3 ml 04/28/21 16:00 04/29/21 09:01 0.9 % Sodium Chloride Flush 3 Ml Syringe IVFLUSH 3 ml QSHIFT GAB Administration Home Medications Medication Instructions Recorded Confirmed Last Taken Type acetaminophen 325 mg tablet (Mapap 650 mg PO Q6H PRN 04/28/21 04/28/21 Unknown History (acetaminophen)) aripiprazole 2 mg tablet (Abilify) 2 mg PO DAILY@14 04/28/21 04/28/21 04/27/21 History aripiprazole 5 mg tablet (Abilify) 5 mg PO DAILY 04/28/21 04/28/21 04/28/21 History benztropine 0.5 mg tablet 0.5 mg PO BID 04/28/21 04/28/21 04/27/21 History buspirone 10 mg tablet 20 mg PO TID 04/28/21 04/28/21 04/28/21 History gvtspejmgf-muiixysdzqsny-xgahihzq 1 tab PO Q6H PRN 04/28/21 04/28/21 Unknown History 50 mg-325 mg-40 mg tablet clonidine HCl 0.1 mg tablet 0.1 mg PO BID 04/28/21 04/28/21 04/28/21 History diazepam 10 mg tablet (Valium) 10 mg PO USEASDIRECTD PRN 04/28/21 04/28/21 Unknown History lacosamide 100 mg tablet 100 mg PO BID 04/28/21 04/28/21 04/28/21 History multivitamin 1 tab PO DAILY 04/28/21 04/28/21 04/28/21 History oxcarbazepine 600 mg tablet 600 mg PO TID 04/28/21 04/28/21 04/28/21 History (Trileptal) Physical Exam Vital Signs: Vital Signs: Last Vital Signs Temp 97.9 F 04/29/21 12:00 Pulse 96 04/29/21 12:00 Resp 16 04/29/21 12:00 BP 139/82 04/29/21 12:00 Pulse Ox 99 04/29/21 12:00 Body Mass Index 33.0 Const: Other: Constitutional : Alert,not in distress Neck : Normal inspection, Supple Cardiovascular : RRR, S1 S2, no lower extremity edema Respiratory : Good bilateral air entry, no crackles, wheezes or rhonchi Gastrointestinal: soft, lax, Normal bowel sounds, Non tender Skin : Warm, Dry Neurological : Alert , nonverbal, move all extremities, interactive General: healthy appearing, no acute distress and well developed Nutritional Appearance: well nourished Orientation/consciousness: oriented to person (Does not verbalize or follow commands) HENMT: Head: Yes normal to inspection, Yes normocephalic and Yes atraumatic General nose exam: Normal external nose present Face and sinus: Yes normal facial exam Mouth: Normal oral and palatal mucosa present Throat: Yes posterior oropharynx normal Eyes: General: appearance normal, both eyes and all related structures Neck: Neck: Yes normal visual inspection, Yes full ROM and Yes no JVD Chest: Chest palpation & inspection: normal inspection of the chest Resp: Effort & Inspection: normal respiratory effort Auscultation: clear to auscultation bilaterally Cardio: Rate: regular rate Rhythm: regular rhythm Heart sounds: S1 normal heart sound present, S2 normal heart sound present, no gallops, no murmurs and no rubs Peripheral pulses: Peripheral pulses 2+ throughout and radial pulses present GI: Inspection: Yes normal to inspection and No distended Palpation (GI): Soft to palpation, Firmness to palpation present (GI), nontender and no guarding Auscultation: normal bowel sounds : General: Yes no CVA tenderness Back/Spine/Pelvis: Back: no CVA tenderness Thoracic/Lumbar Spine: thoracic and lumbar spine normal to inspection Skin: General skin exam: elasticity normal, turgor normal and dry skin Neuro: Other: Nonverbal and not cooperative. Walks around the room and no obvious focal findings. Neck is supple General: oriented to person (Does not verbalize or follow commands) and moves all extremities Extrem: General: Yes full ROM Results Labs CBC & Chem 7: 04/29/21 06:00 04/29/21 06:00 Labs: Short CBC 04/29/21 Range/Units 06:00 WBC 8.2 (4.8-10.8) X10*3/uL Hgb 15.1 (14.0-18.0) g/dl Hct 44.3 (42-52) % Plt Count 268 (160-400) X10*3/uL BMP 04/28/21 04/29/21 23:25 06:00 Sodium 136 137 Potassium 3.7 4.1 Chloride 104 106 Carbon Dioxide 20 L 22 BUN 11 12 Creatinine 0.95 0.82 Calcium 9.3 9.3 Assessment and Plan (1) Breakthrough seizure: Status: Acute Recommend giving him an extra dose of oxcarbamazepine 600 mg prior to discharge, continue his usual medications at home at the previous dosage and followup with his neurologist, Dr. Cueva in [place] in a couple of weeks 30 years old male with PMH of autism, seizures who presented to the hospital after a witnessed seizure. Breakthrough seizure continue his home medications to give a dose of Ativan continue p.r.n. diazepam to get Neurology evaluation Trileptal level pending Seizure precautions DVT PPX Xarelto Procedures Date of Service Date of Service: 04/29/21
--- NOTE | 2021-04-29 13:47 | PM.DS ---
DS: Providers Provider Date of Service: 04/29/21 Date of admission: 04/28/21 15:24 Primary care physician: Adarsh Lorenzo DO Consults: 04/28/21 15:24 Consult to Neurology Routine Consulting Provider: [facility] Reason for consultation: Breakthrough seizures, compliant w meds, for your advice DS: Diagnosis Discharge Diagnosis (1) Breakthrough seizure: Status: Acute DS: Medications Discharge Medications Home Medications: Home Medications Medication Instructions Recorded Confirmed acetaminophen 325 mg tablet (Mapap 650 mg PO Q6H PRN 04/28/21 04/28/21 (acetaminophen)) aripiprazole 2 mg tablet (Abilify) 2 mg PO DAILY@14 04/28/21 04/28/21 aripiprazole 5 mg tablet (Abilify) 5 mg PO DAILY 04/28/21 04/28/21 benztropine 0.5 mg tablet 0.5 mg PO BID 04/28/21 04/28/21 buspirone 10 mg tablet 20 mg PO TID 04/28/21 04/28/21 fvybyxtvcx-iekmpkxolcygn-hsjgglhl 1 tab PO Q6H PRN 04/28/21 04/28/21 50 mg-325 mg-40 mg tablet clonidine HCl 0.1 mg tablet 0.1 mg PO BID 04/28/21 04/28/21 diazepam 10 mg tablet (Valium) 10 mg PO USEASDIRECTD PRN 04/28/21 04/28/21 lacosamide 100 mg tablet 100 mg PO BID 04/28/21 04/28/21 multivitamin 1 tab PO DAILY 04/28/21 04/28/21 oxcarbazepine 600 mg tablet 600 mg PO TID 04/28/21 04/28/21 (Trileptal) DS: Summary Hospital Course Hospital Course: Admission note HPI 30 years old male with PMH of autism, seizures who presented to the hospital after a witnessed seizure.? Patient was in emergency air urine the morning for reported seizure at the facility which was not witnessed.? He was evaluated the emergency and discharge back home but upon leaving and trying to go to the needed low seizure event witnessed by a staff member. He follows up with Dr. Aria Valerio as a neurologist. CT scan negative for any acute findings Patient could not provide any history as he is nonverbal. Admitted for further evaluation and treatment. Hospital course Patient was admitted after receiving a dose of Ativan in the emergency for 2 reported episodes of seizures. Overnight no reported seizures as he resumed his home medications. Evaluated by Neurology as a CT scan of the head was negative for any acute findings with recommendation to given extra dose of Trileptal and discharge the patient back home to follow-up with his neurologist within few weeks. Time Spent with Patient Time attestation: Total time spent providing and/or coordinating discharge services: Discharge coordination time: Greater than 30 minutes Quality: Stroke Does the patient have a stroke diagnosis?: No Physical Exam Vital Signs: Vital Signs: Last Vital Signs Temp 97.9 F 04/29/21 12:00 Pulse 96 04/29/21 12:00 Resp 16 04/29/21 12:00 BP 139/82 04/29/21 12:00 Pulse Ox 99 04/29/21 12:00 Body Mass Index 33.0 Const: Other: Constitutional : Alert,not in distress Neck : Normal inspection, Supple Cardiovascular : RRR, S1 S2, no lower extremity edema Respiratory : Good bilateral air entry, no crackles, wheezes or rhonchi Gastrointestinal: soft, lax, Normal bowel sounds, Non tender Skin : Warm, Dry Neurological : Alert , nonverbal, move all extremities, interactive DS: Data Data Completed and Pending Labs on day of discharge: Laboratory Results - last 24 hr 04/28/21 04/28/21 04/28/21 15:22 17:09 23:25 WBC RBC Hgb Hct MCV MCH MCHC RDW Plt Count MPV Absolute Nucleated RBC Nucleated RBC % (auto) Sodium 136 Potassium 3.7 Chloride 104 Carbon Dioxide 20 L Anion Gap 16 BUN 11 Creatinine 0.95 Estim Creat Clear Calc 135.1 Estimated GFR > 60 Random Glucose 155 H D Calcium 9.3 Magnesium 2.2 TSH 2.48 Urine Opiates Screen Not Detected Urine Fentanyl Screen Not Detected Ur Barbiturates Screen Not Detected Ur Phencyclidine Scrn Not Detected Ur Amphetamines Screen Not Detected U Benzodiazepines Scrn Not Detected Urine Cocaine Screen Not Detected U Marijuana (THC) Screen Not Detected COVID-19 (LIM[facility]) Negative COVID-19 Clin Com See Note 04/29/21 04/29/21 06:00 06:00 WBC 8.2 RBC 5.66 Hgb 15.1 Hct 44.3 MCV 78.3 L MCH 26.7 L MCHC 34.1 RDW 13.8 Plt Count 268 MPV 9.0 L Absolute Nucleated RBC 0.000 Nucleated RBC % (auto) 0.0 Sodium 137 Potassium 4.1 Chloride 106 Carbon Dioxide 22 Anion Gap 13 BUN 12 Creatinine 0.82 Estim Creat Clear Calc 156.5 Estimated GFR > 60 Random Glucose 95 D Calcium 9.3 Magnesium TSH Urine Opiates Screen Urine Fentanyl Screen Ur Barbiturates Screen Ur Phencyclidine Scrn Ur Amphetamines Screen U Benzodiazepines Scrn Urine Cocaine Screen U Marijuana (THC) Screen COVID-19 (LIM[facility]) COVID-19 Clin Com Discharge Plan Discharge Patient Disposition: Home, Self-Care Discharge Diagnosis: breakthrough seizures Referrals: Physician,Unknown [Physician] - 1 Week Discharge Medications: Continued multivitamin Tablet 1 tab PO DAILY RF: 0 clonidine HCl 0.1 mg Tablet 0.1 mg PO BID RF: 0 acetaminophen [Mapap (acetaminophen)] 325 mg Tablet 650 mg PO Q6H PRN (Reason: Pain) RF: 0 benztropine 0.5 mg Tablet 0.5 mg PO BID RF: 0 gmlbrlyhcr-fczujitnjyxhn-ftow 50-325-40 mg Tablet 1 tab PO Q6H PRN (Reason: Headache) RF: 0 buspirone 10 mg Tablet 20 mg PO TID RF: 0 oxcarbazepine [Trileptal] 600 mg Tablet 600 mg PO TID RF: 0 diazepam [Valium] 10 mg Tablet 10 mg PO USEASDIRECTD PRN (Reason: PRIOR TO MD APPT) RF: 0 aripiprazole [Abilify] 5 mg Tablet 5 mg PO DAILY RF: 0 aripiprazole [Abilify] 2 mg Tablet 2 mg PO DAILY@14 RF: 0 lacosamide 100 mg Tablet 100 mg PO BID RF: 0 Discharge Orders: Discharge Order (Routine); Ordered 04/29/21 Ordered By: Jeff Morris Diet: advance to usual diet Activity on Discharge: As tolerated Stand Alone Forms: Patient Portal Discharge page Care Plan Goals: Read below Health Concerns: Read below Plan of Treatment: Presented with breakthrough seizures. Resolved after a dose of Ativan with no recurrence. Evaluated by Neurology with recommendations to follow-up with his neurologist as outpatient. Assessment: Continue current home medications
--- NOTE | 2021-04-29 14:18 | MHC.CM.PN ---
PT DISCHARGING BACK TO LONG-TERM, [employer] [facility] NOTIFIED VIA PHONE AT 2:15PM, CM REVIEWED NO MED CHANGES AND DIRECTIONS TO FOLLOW-UP W/PCP AND NEUROLOGIST IN 2WKS W/CONN[facility], STAFF IN ROOM WILL TRANSPORT PT.
[2021-05-04 01:22] LABS: Oxcarbazepine 18.7 mcg/mL (8.0-35.0)
== END 2021-04-29 14:30 | disposition home or self-care (01) ==
LOC: HO.ED 14:18 → HO.EDOVER 15:45 → HO.S3 18:38
PROVIDERS: Internal Medicine; Nurse Practitioner Family; Admitting Provider Student in an Organized Health Care Education/Training Program; Emergency Provider Emergency Medicine; PCP Internal Medicine; Visit Provider Student in an Organized Health Care Education/Training Program
DX: G40.909 Epilepsy, unspecified, not intractable, without status epilepticus (principal); F84.0 Autistic disorder; R00.0 Tachycardia, unspecified; R94.31 Abnormal electrocardiogram [ECG] [EKG]; Z20.822 Contact with and (suspected) exposure to COVID-19; Z79.899 Other long term (current) drug therapy
CPT/HCPCS: 36415; 80048; 80307; 80339; 83735; 84443; 85027; 87635; 93005; 96374; 96375; 99218; 99285; J2060

== ENCOUNTER 2021-06-05 18:32 | Emergency (ER) | payer OTHER, SELFPAY ==
--- NOTE | ~2021-06-05 | CT_ITS ---
EXAMINATION: CT HEAD WITHOUT CONTRAST CLINICAL INFORMATION: Seizure. Evaluate for ICH. COMPARISON: CT brain without contrast 04/28/2021 TECHNIQUE: Contiguous axial imaging was performed from the skull base to vertex without intravenous administration of contrast. This CT examination was performed using dose optimization techniques as appropriate, variously including the following: *Automated exposure control *Adjustment of mA and/or kV according to patient size (this includes techniques or standardized protocols for targeted exams where dose is matched to indication/reason for exam; i.e. extremities or head) *Use of iterative reconstruction technique DLP: 910 mGy-cm FINDINGS: There is no evidence of acute intracranial hemorrhage or territorial infarction. No abnormal mass effect or midline shift is seen. Reeves to white matter differentiation is well preserved. No extra-axial fluid collections are identified. The ventricles are normal in size. There is no abnormal attenuation within the brain parenchyma. The osseous structures and soft tissues are normal. There is mild periosteal thickening right sphenoid sinus. Rest of the paranasal sinuses are clear. Minimal mucosal thickening of right mastoid sinus. The mastoid sinuses clear. CT/CT head/brain wo con IMPRESSION: No acute intracranial process seen. Minimal mucoperiosteal thickening right sphenoid sinus
[2021-06-05 18:55] VITALS: BP 142/87; PULSE 104; RESP 16; TEMP 36.2; O2SAT 98; BMI 34.4
--- NOTE | 2021-06-05 20:26 | ED.SEIZURE ---
HPI - Seizure General Chief Complaint: Seizure Stated Complaint: fall Time Seen by Provider: 06/05/21 19:43 Source: other ([facility] staff member) Mode of arrival: ambulatory Limitations: altered mental status History of Present Illness HPI Narrative: 30-year-old male with a past medical history of autism, seizure disorder on Vimpat and Trileptal here after witnessed seizure by staff. Staff member tells me he was in the kitchen when he heard a loud Bang. He went into the bathroom and found the patient on the floor having a tonic clonic seizure which lasted approximately 35 seconds. He tells me he was concerned because his the patient's heart rate was very fast on palpation during the seizure. Patient did have incontinence. Roused on his own without intervention. Per staff he has now his baseline. No recent changes in medication. He has not missed any doses. No recent illness. He is on Trileptal 600 mg 3 times a day. He is also on Vimpat 100 mg 3 times a day. His last seizure was April 28. He has had several seizures this year. After his last seizure his dose of Vimpat was increased from 100 mg twice a day to 100 mg 3 times a day. His neurologist is Dr. Cueva from [facility] Seizure History: Yes Related Data Home Medications Medication Instructions Recorded Confirmed acetaminophen 325 mg tablet (Mapap 650 mg PO Q6H PRN 04/28/21 04/28/21 (acetaminophen)) aripiprazole 2 mg tablet (Abilify) 2 mg PO DAILY@14 04/28/21 04/28/21 aripiprazole 5 mg tablet (Abilify) 5 mg PO DAILY 04/28/21 04/28/21 benztropine 0.5 mg tablet 0.5 mg PO BID 04/28/21 04/28/21 buspirone 10 mg tablet 20 mg PO TID 04/28/21 04/28/21 veyraqknaz-onidzexvxlmsm-vlqqeyph 1 tab PO Q6H PRN 04/28/21 04/28/21 50 mg-325 mg-40 mg tablet clonidine HCl 0.1 mg tablet 0.1 mg PO BID 04/28/21 04/28/21 diazepam 10 mg tablet (Valium) 10 mg PO USEASDIRECTD PRN 04/28/21 04/28/21 lacosamide 100 mg tablet 100 mg PO BID 04/28/21 04/28/21 multivitamin 1 tab PO DAILY 04/28/21 04/28/21 oxcarbazepine 600 mg tablet 600 mg PO TID 04/28/21 04/28/21 (Trileptal) Allergies Allergy/AdvReac Type Severity Reaction Status Date / Time No Known Allergies Allergy Unverified 06/03/20 17:21 [No Known Allergies*] Review of Systems Review of Systems: Yes Unobtainable due to mental status PMFSH Past Medical History Attestation statement: The following information was validated with the patient. Source: old records reviewed and nursing notes reviewed Medical History Autism Epileptic seizure Seizures Social History Social History Alcohol intake: never Patient Tobacco Use Status: Never used Tobacco Advance Directives: No Advance Directives Information Provided: No service: No Current occupational status: disabled Physical Exam Vital Signs: Vital Signs: Last Vital Signs Temp 97.2 F 06/05/21 18:55 Pulse 104 H 06/05/21 18:55 Resp 16 06/05/21 18:55 BP 142/87 H 06/05/21 18:55 Pulse Ox 98 06/05/21 18:55 Body Mass Index 34.4 Const: General: cooperative, healthy appearing, comfortable and no acute distress Orientation/consciousness: patient oriented x3 Limitations: no limitations HENMT: Head: Yes normal to inspection Ears: hearing grossly normal bilaterally General nose exam: Normal external nose present Face and sinus: Yes normal facial exam Mouth: Normal oral and palatal mucosa present Throat: Yes posterior oropharynx normal Eyes: General: appearance normal, both eyes and all related structures Pupils: Equal, round and reactive pupils present Neck: Neck: Yes normal visual inspection and Yes full ROM Chest: Chest palpation & inspection: normal inspection of the chest Resp: Effort & Inspection: normal respiratory effort Auscultation: clear to auscultation bilaterally Cardio: Rate: regular rate Rhythm: regular rhythm Peripheral pulses: Peripheral pulses 2+ throughout GI: Inspection: Yes normal to inspection Palpation (GI): Soft to palpation and nontender Auscultation: normal bowel sounds Back/Spine/Pelvis: Thoracic/Lumbar Spine: thoracic and lumbar spine normal to inspection Skin: General skin exam: no rashes or lesions noted Neuro: General: patient oriented x3, moves all extremities, no focal motor deficits and normal sensation to monofilament Cranial nerves: Yes Equal, round and reactive pupils present Gait exam (Neuro): Normal gait present Motor exam (neuro): 5/5 motor strength present throughout Sensory Exam: Normal double simultaneous stimulation for sensation Extrem: General: Yes normal to inspection Course Course Course Narrative: 30-year-old male with a past medical history of epileptic seizures on Vimpat and Trileptal here after a witnessed seizure at the retirement. There was head strike. The seizure was approximately 35 seconds in length. There was some concern from staff that he was tachycardic during his seizure. He is back at his baseline. No recent illness. Staff has been administering his medications. He did have added increasing his dose of Vimpat to this month due to a breakthrough seizure on April 28. Neuro exam at baseline per staff. Vitals are stable. He is not tachycardic. ?inaccurate reading from staff during shaking seizure. Will check labs including trileptal level, CT head d/t head strike. -if normal will refer patient back to his neurologist for any additional medication changes 2100-labs show mild hyponatremia unchanged from previous. Otherwise unremarkable. Trileptal level is pending at will not result tonight. CT head shows no acute finding. Spoke to staff. Patient is at his baseline. They will call his neurologist tomorrow for follow-up appointment and any medication changes recommended. Reviewed worrisome signs and symptoms of when to return to the emergency department. Comfortable discharge home. MDM - Seizure Medical Records Attestation: I reviewed the patient's medical records. Lab Data Attestation: I reviewed the patient's lab results. Result diagrams: 06/05/21 20:26 06/05/21 20:26 Labs: Lab Results 06/05/21 06/05/21 Range/Units 20:26 20:26 WBC 10.3 (4.8-10.8) X10*3/uL RBC 5.62 (4.60-5.80) X10*6/uL Hgb 15.3 (14.0-18.0) g/dl Hct 43.7 (42-52) % MCV 77.8 L (80-98) fL MCH 27.2 (27.0-33.0) pg MCHC 35.0 (31.0-36.0) g/dl RDW 13.2 (11.0-16.0) % Plt Count 258 (160-400) X10*3/uL MPV 9.1 L (9.4-12.4) fL Immature Gran % (Auto) 0.8 H (0.0-0.4) % Neut % (Auto) 81.8 H (45-73) % Lymph % (Auto) 9.6 L (20-40) % Canyon % (Auto) 7.0 (2-11) % Eos % (Auto) 0.3 (0-4) % Baso % (Auto) 0.5 (0-2) % Lymph # (Auto) 1.0 L (1.2-4.9) X10*3/uL [place] # (Auto) 0.7 (0.1-1.2) X10*3/uL Eos # (Auto) 0.0 (0.0-0.4) X10*3/uL Baso # (Auto) 0.1 (0.0-0.2) X10*3/uL Abs Immat Gran (auto) 0.08 H (0.00-0.03) X10*3/uL Absolute Neuts (auto) 8.4 H (2.0-8.3) X10*3/uL Absolute Nucleated RBC 0.000 (0.0-0.012) X10*3/uL Nucleated RBC % (auto) 0.0 (0.0-0.2) /100WBC Sodium 132 L (135-145) mmol/L Potassium 4.1 (3.3-5.1) mmol/L Chloride 102 (96-108) mmol/L Carbon Dioxide 21 L (22-29) mmol/L Anion Gap 13 (12-20) BUN 12 (9-16) mg/dL Creatinine 0.79 (0.5-1.4) mg/dL Estim Creat Clear Calc 165.8 Estimated GFR > 60 Random Glucose 119 H (60-115) mg/dL Calcium 8.9 (8.4-10.2) mg/dL Magnesium 2.2 (1.6-2.6) mg/dL Imaging Data CT scan - head: Attestation: I personally reviewed and interpreted this imaging study as follows: Radiologist's impression: FINDINGS: There is no evidence of acute intracranial hemorrhage or territorial infarction. No abnormal mass effect or midline shift is seen. Reeves to white matter differentiation is well preserved. No extra-axial fluid collections are identified. The ventricles are normal in size. There is no abnormal attenuation within the brain parenchyma. The osseous structures and soft tissues are normal. There is mild periosteal thickening right sphenoid sinus. Rest of the paranasal sinuses are clear. Minimal mucosal thickening of right mastoid sinus. The mastoid sinuses clear. ? CT/CT head/brain wo con IMPRESSION: No acute intracranial process seen. ? Minimal mucoperiosteal thickening right sphenoid sinus Discharge Plan Discharge Clinical Impression: Epileptic seizure Patient Disposition: Home, Self-Care Instructions: Epilepsy (ED) Additional Instructions: Call neurologist tomorrow for medication recommendations CT scan were normal Labs unremarkable Trileptal level is pending we will have this back tomorrow. Prescriptions: No Action multivitamin Tablet 1 tab PO DAILY RF: 0 clonidine HCl 0.1 mg Tablet 0.1 mg PO BID RF: 0 acetaminophen [Mapap (acetaminophen)] 325 mg Tablet 650 mg PO Q6H PRN (Reason: Pain) RF: 0 benztropine 0.5 mg Tablet 0.5 mg PO BID RF: 0 xiwsnbankc-ewnydqwcfxhuj-ahos 50-325-40 mg Tablet 1 tab PO Q6H PRN (Reason: Headache) RF: 0 buspirone 10 mg Tablet 20 mg PO TID RF: 0 oxcarbazepine [Trileptal] 600 mg Tablet 600 mg PO TID RF: 0 diazepam [Valium] 10 mg Tablet 10 mg PO USEASDIRECTD PRN (Reason: PRIOR TO MD APPT) RF: 0 aripiprazole [Abilify] 5 mg Tablet 5 mg PO DAILY RF: 0 aripiprazole [Abilify] 2 mg Tablet 2 mg PO DAILY@14 RF: 0 lacosamide 100 mg Tablet 100 mg PO BID RF: 0 Referrals: Reese Cueva MD [Physician] - 2 days
[2021-06-05 20:34] LABS: MANUAL DIFF FLAG NO
[2021-06-05 20:35] LABS: Basophils Absolute Auto 0.1 X10*3/uL (0.0-0.2); Basophils Percent Auto 0.5 % (0-2); Eosinophils Percent Auto 0.3 % (0-4); Hematocrit 43.7 % (42-52); Hemoglobin 15.3 g/dl (14.0-18.0); Imm Gran Abs Auto 0.08 X10*3/uL (0.00-0.03); Imm Gran Pct Auto 0.8 % (0.0-0.4); Lymphocytes Percent Auto 9.6 % (20-40); Mean Corpuscular Hemoglobin 27.2 pg (27.0-33.0); Mean Corpuscular Volume 77.8 fL (80-98); Mean Platelet Volume 9.1 fL (9.4-12.4); Monocytes Absolute Auto 0.7 X10*3/uL (0.1-1.2); Neutrophils Absolute Auto 8.4 X10*3/uL (2.0-8.3); Neutrophils Percent Auto 81.8 % (45-73); Platelet Count 258 X10*3/uL (160-400); Red Blood Count 5.62 X10*6/uL (4.60-5.80); Red Cell Distribution Width 13.2 % (11.0-16.0); White Blood Count 10.3 X10*3/uL (4.8-10.8)
[2021-06-05 20:49] LABS: Anion Gap 13 (12-20); Blood Urea Nitrogen 12 mg/dL (9-16); Calcium 8.9 mg/dL (8.4-10.2); Carbon Dioxide 21 mmol/L (22-29); Chloride 102 mmol/L (96-108); Creatinine Clr Calc Pharmacy 165.8; Estimated Glomerular Filt Rate > 60; Glucose Random 119 mg/dL (60-115); Magnesium 2.2 mg/dL (1.6-2.6); Potassium 4.1 mmol/L (3.3-5.1); Sodium 132 mmol/L (135-145)
[2021-06-11 07:57] LABS: Oxcarbazepine 23.2 mcg/mL (8.0-35.0)
== END 2021-06-05 21:07 | disposition home or self-care (01) ==
PROVIDERS: Nurse Practitioner Family; Emergency Provider Internal Medicine; PCP Internal Medicine
DX: G40.909 Epilepsy, unspecified, not intractable, without status epilepticus (principal); Z79.899 Other long term (current) drug therapy
CPT/HCPCS: 36415; 70450; 80048; 80339; 83735; 85025; 99284

== ENCOUNTER 2022-05-11 11:47 | Emergency (ER) | payer OTHER, SELFPAY ==
[2022-05-11 11:59] VITALS: BP 140/98; BP 141/93; PULSE 102; PULSE 94; RESP 14; TEMP 36.9; O2SAT 97; O2SAT 98; BMI 32.5
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
[2022-05-11] MEDS: Diphth,Pertus(ACell),Tet Adult 0.5 ML SYRINGE IM (13:00)
== END 2022-05-11 13:15 | disposition other institution (70) ==
PROVIDERS: Emergency Provider Emergency Medicine Emergency Medical Services
DX: S61.213A Laceration without foreign body of left middle finger without damage to nail, initial encounter (principal); W45.8XXA Other foreign body or object entering through skin, initial encounter; Y93.9 Activity, unspecified; Y92.019 Unspecified place in single-family (private) house as the place of occurrence of the external cause; Y99.9 Unspecified external cause status
CPT/HCPCS: 12001; 90471; 90715; 99282; 99284

== ENCOUNTER 2023-07-30 12:03 | Emergency (ER) | payer OTHER, SELFPAY ==
[2023-07-30 12:08] VITALS: BP 150/100; PULSE 108; O2SAT 96
[2023-07-30 12:22] VITALS: BP 134/78; PULSE 94; RESP 18; TEMP 36.9; O2SAT 96; BMI 32.7
--- NOTE | 2023-07-30 12:47 | ED_ITS ---
HPI - Seizure General Chief Complaint: Seizure Stated Complaint: SZ,H/O BRAIN TUMOR PER EMS Time Seen by Provider: 07/30/23 12:45 Source: other ([facility] staff member, Florinda) Mode of arrival: EMS Limitations: other (Patient is nonverbal) History of Present Illness HPI Narrative: 33-year-old male with a history epileptic seizures and autism who had a seizure at his psychiatry office visit. Information comes from intermediate staff member, Florinda who was here in the emergency department with the patient. The patient had a routine psychiatric visit. While the patient was waiting in the waiting room his left hand started to shake his staff member recognize this as onset of his seizure. She was able to lower him to the ground safely and then he had a tonic clonic seizure which lasted approximately 2-1/2 minutes. Patient had a postictal period approximately 5 minutes. According to the staff member, patient has seizures several times a month and per their policy at the intermediate if has postictal is brief, he does not have to go to the emergency department. Since there at the patient's psychiatrist office, an ambulance was called and the patient was brought to the emergency department for evaluation. The staff member with the patient states that patient has been compliant with his medications and has not been ill in any way in the past several days. Patient is currently at his baseline. Seizure History: Yes Related Data Home Medications Medication Instructions Recorded Confirmed acetaminophen 325 mg tablet (Mapap 650 mg PO Q6H PRN Pain 04/28/21 04/28/21 (acetaminophen)) aripiprazole 2 mg tablet (Abilify) 2 mg PO DAILY@14 04/28/21 04/28/21 aripiprazole 5 mg tablet (Abilify) 5 mg PO DAILY 04/28/21 04/28/21 benztropine 0.5 mg tablet 0.5 mg PO BID 04/28/21 04/28/21 buspirone 10 mg tablet 20 mg PO TID 04/28/21 04/28/21 romlxrppst-fqdniechskrhz-avpztrwq 1 tab PO Q6H PRN Headache 04/28/21 04/28/21 50 mg-325 mg-40 mg tablet clonidine HCl 0.1 mg tablet 0.1 mg PO BID 04/28/21 04/28/21 diazepam 10 mg tablet (Valium) 10 mg PO USEASDIRECTD PRN PRIOR TO 04/28/21 04/28/21 MD LARA lacosamide 100 mg tablet 100 mg PO BID 04/28/21 04/28/21 multivitamin 1 tab PO DAILY 04/28/21 04/28/21 oxcarbazepine 600 mg tablet 600 mg PO TID 04/28/21 04/28/21 (Trileptal) Previous Rx's Medication Instructions Recorded bacitracin 500 unit/gram topical 1 appl topical BID #14 grams 05/11/22 ointment Allergies Allergy/AdvReac Type Severity Reaction Status Date / Time No Known Allergies Allergy Unverified 06/03/20 17:21 [No Known Allergies*] Review of Systems Review of Systems: Yes Unobtainable due to mental status [facility] Past Medical History [facility] Narrative: Patient is in a intermediate and is here with a intermediate staff member. Medical History Epileptic seizure Autism Seizures Social History Social History Alcohol intake: never Patient Tobacco Use Status: Never used Tobacco Advance Directives: No Advance Directives Information Provided: Yes service: No Current occupational status: disabled Physical Exam Vital Signs: Vital Signs: Last Vital Signs Temp 98.5 F 07/30/23 12:22 Pulse 94 07/30/23 12:22 Resp 18 07/30/23 12:22 BP 134/78 07/30/23 12:22 Pulse Ox 96 07/30/23 12:22 O2 Del Method Room Air 07/30/23 12:22 BMI result Body Mass Index 32.7 Vital signs were normal Exam: General: Awake, alert in no distress Head: Normocephalic, atraumatic EENT: PERRL, Lids normal, sclera normal, conjunctiva normal, nose normal , ears normal, throat without erythema or exudates Neck: Supple, no adenopathy, no trachea midline or C-spine tenderness Lung: breath sounds symmetric, no wheezing, rales or rhonchi Chest: symmetric movement, nontender Heart: regular rate and rhythm, normal S1, S2 no murmurs or rubs Abdomen: soft, non-tender, nondistended, normal bowel sounds Back: no vertebral tenderness, no CVAT Extremities: no deformities, moves all extremities symmetrically Neuro: Awake, alert, nonverbal, oriented, follows commands, cranial nerves intact, moves all extremities symmetrically Psych: Pleasant, cooperative, smiles, laughs and appears to be happy Medical Decision Making Medical Decision Making MDM Narrative: 33-year-old male with history of autism and seizure disorder who had a seizure at his routine psychiatric appointment. According to the staff member with him he has several seizures a month, the staff member recognize that the patient was about to have a seizure and was able to lower him to the floor the patient had no injuries. Seizure lasted approximately 2-1/2 minutes and the patient then had a postictal period of approximately 5 minutes and is currently at his baseline. At this time, I do not think that the patient needs a CT scan of his brain or blood work. The patient will be discharged to his intermediate and his staff member can transport him back in their van. Differential Diagnosis Differential Diagnoses: The differential diagnosis associated with the presentation includes Differential diagnosis includes but is not limited to seizure, hypoglycemia, electrolyte abnormalities, anemia Independent Historian Clinical information obtained from an independent historian. History obtained from or confirmed by: Other ([facility] staff member) Chronic Conditions Patient?s care impacted by: Other (Autism, epileptic seizure disorder) Discharge Plan Discharge Clinical Impression: Generalized seizure Patient Disposition: Home, Self-Care Additional Instructions: Based on the description of Viet's seizure today and his seizure pattern. I do not think that he needs any other testing from the emergency department. Continue to give his medications as prescribed by his providers. The intermediate should consult with his neurologist to see if he needs any change in his anti seizure medications Follow-up with your doctor in 2 days. Please return to the emergency department if your symptoms get worse or if you develop any symptoms that are concerning to you. Prescriptions: No Action multivitamin Tablet 1 tab PO DAILY clonidine HCl 0.1 mg Tablet 0.1 mg PO BID acetaminophen [Mapap (acetaminophen)] 325 mg Tablet 650 mg PO Q6H PRN (Reason: Pain) benztropine 0.5 mg Tablet 0.5 mg PO BID gsdgnezbnr-xpwebdqylhhzn-yldl 50-325-40 mg Tablet 1 tab PO Q6H PRN (Reason: Headache) buspirone 10 mg Tablet 20 mg PO TID oxcarbazepine [Trileptal] 600 mg Tablet 600 mg PO TID diazepam [Valium] 10 mg Tablet 10 mg PO USEASDIRECTD PRN (Reason: PRIOR TO MD APPT) aripiprazole [Abilify] 5 mg Tablet 5 mg PO DAILY aripiprazole [Abilify] 2 mg Tablet 2 mg PO DAILY@14 lacosamide 100 mg Tablet 100 mg PO BID bacitracin 500 unit/gram ointment 1 appl topical BID Qty: 14 0RF
== END 2023-07-30 13:30 | disposition home or self-care (01) ==
PROVIDERS: Emergency Provider Emergency Medicine Emergency Medical Services
DX: G40.909 Epilepsy, unspecified, not intractable, without status epilepticus (principal); F84.0 Autistic disorder; Z79.899 Other long term (current) drug therapy
CPT/HCPCS: 99282

== ENCOUNTER 2024-05-26 13:17 | Outpatient (AMB) | payer OTHER, SELFPAY ==
--- NOTE | 2024-05-26 13:18 | AM.OFFWIN_ITS ---
Intake Vital Signs 05/26/24 13:20 Height 5 ft 9 in Weight 240 lb BMI 35.4 BP 128/84 Blood Pressure Location Rt brachial Position Sitting Pulse 75 Pulse Source Pulse Oximeter Temp 98.4 F Temp Source Oral Pulse Oximetry (%) 98 Oxygen Delivery Method Room Air Intake Visit Reasons: EP-new pt seizure med refill Intake Note: pt requesting refill for his Oxcarbazepine 600MG PO TID and Vimpat 150mg PO TID Patient Tobacco Use Status: Never used Tobacco Allergies No Known Allergies [No Known Allergies*] Allergy (Verified 05/26/24 13:19) Do you need a note to return to daycare/school/sports/work: No HPI HPI Comments History of Present Illness Details Patient is a 33-year-old male who is here with his [place] [facility] workers requesting prescription refills on his antiseizure medications. They explained to me has a benign brain tumor in his on these very strong medications to keep him from having a seizure. They tell me he was seeing Dr. Collins, a private practice neurologist out of [facility], abruptly closed his practice. Then but reached out to his primary care provider at [facility] who would not refill any of his medications with out making an appointment. They did get a an appointment with his PCP on June 04 however, he ran out of both medications 2 days a go. They state he has not had a seziure but they are very concerned he will have one. Patient was asked if he was feeling okay and he just said he had a little sore throat. However the housekeeping laundry worker said he can not be dependent upon to accurately portray how he is feeling. [facility] Medical History Epileptic seizure Autism Seizures Social History Alcohol intake: never Comment: [place] staff at bedside Patient Tobacco Use Status: Never used Tobacco service: No Current occupational status: disabled Review of Systems Const All systems reviewed & are unremarkable except as noted in HPI and below Physical Exam Vital Signs: Last Vital Signs Temp 98.4 F 05/26/24 13:20 Pulse 75 05/26/24 13:20 BP 128/84 05/26/24 13:20 Pulse Ox 98 05/26/24 13:20 Oxygen Delivery Method Room Air 05/26/24 13:20 BMI result Body Mass Index 35.4 Const General: cooperative, healthy appearing, comfortable, no acute distress and well developed Orientation/consciousness: patient oriented x3 Limitations: other limitations (Unable to communicate how hes feeling accurately, is with his to [place] [facility]) HEENT Head: Yes normal to inspection Ears: hearing grossly normal bilaterally General nose exam: Normal external nose present Face and sinus: Yes normal facial exam Eyes General: appearance normal, both eyes and all related structures Neck Neck: Yes normal visual inspection and Yes full ROM Resp Effort & Inspection: normal respiratory effort and able to speak in complete sentences Skin General skin exam: no rashes or lesions noted Neuro General: patient oriented x3 Extrem General: Yes normal to inspection Assessment & Plan Assessment & Plan (1) Seizure disorder: Code(s): G40.909 - Epilepsy, unspecified, not intractable, without status epilepticus Plan: Verified doses with the amounts is accurate with [facility] for both medications. The lacosamide was sent with 84 tablets because that is what his history showed, not 90 tablets, that prescription did not get sent over. Plan See above Medications: New lacosamide 150 mg PO TID 84 tabs 0RF oxcarbazepine 600 mg PO TID 90 tabs 0RF lacosamide 150 mg PO TID 90 tabs 0RF Coding Level of Care Code New Pt Level 4 (32141) Diagnoses Seizure disorder G40.909
[2024-05-26 13:20] VITALS: BP 128/84; PULSE 75; TEMP 36.9; O2SAT 98; BMI 35.4
== END 2024-05-26 14:13 | disposition home or self-care (01) ==
PROVIDERS: Visit Provider Physician Assistant
DX: G40.909 Epilepsy, unspecified, not intractable, without status epilepticus (principal)
CPT/HCPCS: 99204

== ENCOUNTER 2024-08-29 09:52 | Emergency (ER) | payer OTHER, SELFPAY ==
--- NOTE | ~2024-08-29 | XR_ITS ---
EXAMINATION: XR CHEST CLINICAL INFORMATION: seizure COMPARISON: None available. TECHNIQUE: Frontal view of the chest was obtained. FINDINGS: Cardiac silhouette is prominent however likely magnified by AP technique. Mediastinal and hilar contours appear normal allowing for technique. Low lung volumes with mildly elevated left hemidiaphragm, and minimal left base atelectasis. Lungs otherwise clear. No pneumothorax or effusion. No soft tissue or bony abnormalities. XR/XR chest 1V IMPRESSION: No active disease. Electronically signed by: Jd Duarte MD 08/29/2024 12:44 PM EST
--- NOTE | ~2024-08-29 | CT_ITS ---
EXAMINATION: CT HEAD WITHOUT CONTRAST CLINICAL INFORMATION: Headache, seizure, known brain tumor. COMPARISON: CT head 06/04/2021, 04/28/2021, and 06/17/2020. No prior MRI available for comparison. TECHNIQUE: Contiguous axial imaging was performed from the skull base to vertex without intravenous administration of contrast. This CT examination was performed using dose optimization techniques as appropriate, variously including the following: *Automated exposure control *Adjustment of mA and/or kV according to patient size (this includes techniques or standardized protocols for targeted exams where dose is matched to indication/reason for exam; i.e. extremities or head) *Use of iterative reconstruction technique DLP: 839 mGy-cm FINDINGS: There is no evidence of intracranial hemorrhage or extra-axial fluid collection. There is no mass effect, or edema. No CT evidence of acute territorial infarct. Ventricles, sulci, and cisterns are normal in size and configuration for patient age. No hydrocephalus. No midline shift. 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 Normal sella. Mild atheromatous calcification of the bilateral carotid siphons and V4 segments vertebral arteries bilaterally. Globes and orbital contents image normally. Cerumen impaction in both EACs. No extracranial soft tissue abnormalities. The paranasal sinuses, mastoid air cells, and tympanic cavities are normally aerated. No suspicious bony abnormalities. CT/CT head/brain wo IV con IMPRESSION: 1. No acute intracranial abnormalities. No acute intracranial hemorrhage. 2. No mass or mass effect is identified on noncontrast CT. Would correlate with any prior MR imaging. 3. No CT evidence of acute territorial infarct. 4. Cerumen impaction in both EACs. Electronically signed by: Jd Duarte MD 08/29/2024 01:25 PM [facility]
[2024-08-29 09:57] VITALS: BP 158/92; PULSE 112; O2SAT 99
[2024-08-29 09:59] VITALS: BP 151/89; PULSE 110; RESP 20; TEMP 37.3; O2SAT 97; BMI 38.5
[2024-08-29 10:35] LABS: Basophils Percent Auto 0.5 % (0-2); Eosinophils Percent Auto 0.5 % (0-4); Hematocrit 46.7 % (42.0-52.0); Imm Gran Abs Auto 0.11 X10*3/uL (0.00-0.03); Imm Gran Pct Auto 1.7 % (0.0-0.4); Lymphocytes Absolute Auto 1.5 X10*3/uL (1.2-4.9); MANUAL DIFF FLAG NO; Mean Corpuscular HGB Conc 34.3 g/dl (31.0-36.0); Mean Corpuscular Hemoglobin 27.3 pg (27.0-33.0); Mean Corpuscular Volume 79.7 fL (80.0-98.0); Monocytes Absolute Auto 0.5 X10*3/uL (0.1-1.2); Monocytes Percent Auto 6.8 % (2-11); Neutrophils Absolute Auto 4.6 x10*3/uL (2.0-8.3); Neutrophils Percent Auto 68.5 % (45-73); Platelet Count 237 X10*3/uL (160-400); Red Blood Count 5.86 X10*6/uL (4.60-5.80); Red Cell Distribution Width 12.7 % (11.0-16.0); White Blood Count 6.6 X10*3/uL (4.8-10.8)
--- NOTE | 2024-08-29 10:37 | ED.SEIZURE ---
HPI - Seizure General Chief Complaint: Seizure Stated Complaint: SEIZURE Time Seen by Provider: 08/29/24 10:07 Source: patient, EMS, RN notes reviewed, old records reviewed and other Mode of arrival: EMS History of Present Illness ED Provider: Serina Monroy PA-C HPI Narrative: 34-year-old male with a past medical history of epileptic seizures, autism, intellectual disability, brain tumor/glioma, presenting to ED from senior living s/p witnessed seizure. Per staff patient fell to ground, no head trauma. Staff reports compliance with antiepileptics, Trileptal, denies missing any doses. When asked about complaints patient points to head. Denies recent illness, fever/chills, cough, dysuria. Staff member reports last seizure about 2 months ago. Admits patient is currently at his baseline Seizure History: Yes Place: Home Related Data Home Medications ?Medication ?Instructions ?Recorded ?Confirmed acetaminophen 325 mg tablet (Mapap 650 mg PO Q6H PRN Pain 04/28/21 04/28/21 (acetaminophen)) aripiprazole 2 mg tablet (Abilify) 2 mg PO DAILY@14 04/28/21 04/28/21 aripiprazole 5 mg tablet (Abilify) 5 mg PO DAILY 04/28/21 04/28/21 benztropine 0.5 mg tablet 0.5 mg PO BID 04/28/21 04/28/21 buspirone 10 mg tablet 20 mg PO TID 04/28/21 04/28/21 begptqdikz-dcuoszcmckhws-hgqufrgu 1 tab PO Q6H PRN Headache 04/28/21 04/28/21 50 mg-325 mg-40 mg tablet clonidine HCl 0.1 mg tablet 0.1 mg PO BID 04/28/21 04/28/21 diazepam 10 mg tablet (Valium) 10 mg PO USEASDIRECTD PRN PRIOR TO 04/28/21 04/28/21 MD APPT multivitamin 1 tab PO DAILY 04/28/21 04/28/21 oxcarbazepine 600 mg tablet 600 mg PO TID 04/28/21 04/28/21 (Trileptal) acetaminophen 650 mg mg PO 05/26/24 tablet,extended release lacosamide 150 mg tablet mg PO 05/26/24 Previous Rx's ?Medication ?Instructions ?Recorded bacitracin 500 unit/gram topical 1 appl topical BID #14 grams 05/11/22 ointment lacosamide 150 mg tablet 150 mg PO TID #84 tabs 05/26/24 oxcarbazepine 600 mg tablet 600 mg PO TID #90 tabs 05/26/24 Allergies Allergy/AdvReac Type Severity Reaction Status Date / Time No Known Allergies Allergy Verified 08/29/24 10:01 [No Known Allergies*] Review of Systems Review of Systems: Yes all other systems are reviewed and are negative Constitutional: Constitutional: Reports as per [facility] Past Medical History Attestation statement: The following information was validated with the patient. Source: old records reviewed Medical History Epileptic seizure Autism Seizures Social History Social History Alcohol intake: never Comment: senior living staff at bedside Patient Tobacco Use Status: Never used Tobacco Advance Directives: No Advance Directives Information Provided: Yes service: No Current occupational status: disabled Physical Exam Vital Signs: Vital Signs: Last Vital Signs Temp 99.2 F 08/29/24 09:59 Pulse 91 08/29/24 12:08 Resp 14 08/29/24 12:08 BP 139/85 08/29/24 12:08 Pulse Ox 98 08/29/24 12:08 O2 Del Method Room Air 08/29/24 12:08 BMI result Body Mass Index 38.5 Const: Other: Nonverbal at baseline General: cooperative, healthy appearing and no acute distress Limitations: other limitations (Intellectual disability) HEENT: Head: Yes normal to inspection and Yes atraumatic Ears: hearing grossly normal bilaterally General nose exam: Normal external nose present Face and sinus: Yes normal facial exam Eyes: General: appearance normal, both eyes and all related structures Pupils: Equal, round and reactive pupils present EOM: EOMs intact bilaterally Neck: Neck: Yes normal visual inspection and Yes no meningeal signs Resp: Effort & Inspection: normal respiratory effort and no respiratory distress Auscultation: clear to auscultation bilaterally Cardio: Rate: regular rate Heart sounds: S1 normal heart sound present and S2 normal heart sound present GI: Inspection: Yes normal to inspection Palpation (GI): Soft to palpation, nontender, no guarding and not rigid Skin: Rashes: no rashes Wounds: no wounds Neuro: General: tone normal, moves all extremities, no meningeal signs and no focal motor deficits Cranial nerves: Yes CN's II-XII intact bilaterally and Yes Equal, round and reactive pupils present Motor exam (neuro): 5/5 motor strength present throughout Extrem: General: Yes normal to inspection Course Course Course Narrative: -patient is ambulating in the ED with steady gait -labs reassuring -viral studies negative XR chest 1V IMPRESSION: No active disease. CT head/brain wo IV con IMPRESSION: 1. No acute intracranial abnormalities. No acute intracranial hemorrhage. 2. No mass or mass effect is identified on noncontrast CT. Would correlate with any prior MR imaging. 3. No CT evidence of acute territorial infarct. 4. Cerumen impaction in both EACs. -UA negative > cerumen disimpacted from bilateral external canals with curette. Successful however residual cerumen remains. Recommended peroxide/saline and OTC wax softeners as well as ENT follow-up Results discussed with patient including worrisome signs and symptoms and strict return precautions, and when to return to the emergency department. They verbalized understanding and feel safe for discharge at this time. Medications Administered Discontinued Medications Generic Name Dose Route Start Last Admin Trade Name Freq PRN Reason Stop Dose Admin Lorazepam 1 mg 08/29/24 10:42 08/29/24 10:51 Lorazepam 1 Mg Tablet PO 08/29/24 10:43 1 mg ONCE ONE Administration Lorazepam 1 mg 08/29/24 12:50 08/29/24 12:54 Lorazepam 1 Mg Tablet PO 08/29/24 12:51 1 mg ONCE ONE Administration Medical Decision Making Medical Decision Making [facility] Narrative: 34-year-old male with a past medical history of epileptic seizures, autism, intellectual disability, brain tumor/glioma, presenting to ED from senior living s/p witnessed seizure. On exam mildly tachycardic to 110, temp 99.2 degrees, NAD, nontoxic appearing, at baseline per staff, nonverbal at baseline, no focal neuro deficits. When asked about complaints patient points to head. Concern for breakthrough seizure vs ? expanding brain tumor vs metabolic/infectious etiologies. Plan: Labs, UA, CXR, head CT, re-evaluate Please refer to course for remaining clinical decision making, interpretation of labs/imaging results, and discussions with consultants and/or family members. Differential Diagnosis Differential Diagnoses: The differential diagnosis associated with the presentation includes As above Admission/Observation Consideration of admission/observation: Escalation of care including admission/observation considered Lab Data MDM Lab Attestation statement: I reviewed the patient's lab results. 08/29/24 10:29 08/29/24 10:29 Labs: Lab Results 08/29/24 08/29/24 Range/Units 10:29 13:36 WBC 6.6 (4.8-10.8) X10*3/uL RBC 5.86 H (4.60-5.80) X10*6/uL Hgb 16.0 (14.0-18.0) g/dl Hct 46.7 (42.0-52.0) % MCV 79.7 L (80.0-98.0) fL MCH 27.3 (27.0-33.0) pg MCHC 34.3 (31.0-36.0) g/dl RDW 12.7 (11.0-16.0) % Plt Count 237 (160-400) X10*3/uL MPV 9.0 L (9.4-12.4) fL Immature Gran % (Auto) 1.7 H (0.0-0.4) % Neut % (Auto) 68.5 (45-73) % Lymph % (Auto) 22.0 (20-40) % [place] % (Auto) 6.8 (2-11) % Eos % (Auto) 0.5 (0-4) % Baso % (Auto) 0.5 (0-2) % Lymph # (Auto) 1.5 (1.2-4.9) X10*3/uL [place] # (Auto) 0.5 (0.1-1.2) X10*3/uL Eos # (Auto) 0.0 (0.0-0.4) X10*3/uL Baso # (Auto) 0.0 (0.0-0.2) X10*3/uL Abs Immat Gran (auto) 0.11 H (0.00-0.03) X10*3/uL Absolute Neuts (auto) 4.6 (2.0-8.3) x10*3/uL Absolute Nucleated RBC 0.000 (0.0-0.012) X10*3/uL Nucleated RBC % (auto) 0.0 (0.0-0.2) /100WBC Sodium 137 (135-145) mmol/L Potassium 4.3 (3.3-5.1) mmol/L Chloride 106 (96-108) mmol/L Carbon Dioxide 26 (22-29) mmol/L Anion Gap 9 L (12-20) BUN 19 H (9-16) mg/dL Creatinine 0.84 (0.5-1.4) mg/dL Estim Creat Clear Calc 149.6 Estimated GFR > 60 Random Glucose 108 (60-115) mg/dL Calcium 9.2 (8.4-10.2) mg/dL Magnesium 2.1 (1.6-2.6) mg/dL Total Bilirubin 0.3 (0.0-1.0) mg/dL Direct Bilirubin 0.1 (0.0-0.5) mg/dL AST 24 (5-37) U/L ALT 45 H (0-40) U/L Alkaline Phosphatase 75 (39-117) U/L Total Protein 7.4 (6.5-8.0) g/dL Albumin 4.5 (3.5-5.0) g/dL Urine Color Yellow Urine Appearance Clear Urine pH 5.5 (5.0-9.0) Ur Specific [place] 1.015 (1.005-1.025) Urine Protein Negative (Neg-Trace) mg/dL Urine Glucose (UA) Negative (Negative) mg/dL Urine Ketones Negative (Negative) mg/dL Urine Blood Negative (Negative) Urine Nitrite Negative (Negative) Ur Leukocyte Esterase Negative (Negative) Influenza Type A (PCR) NEGATIVE (Negative) Influenza Type B (PCR) NEGATIVE (Negative) RSV RNA Qual (PCR) NEGATIVE (Negative) SARS-CoV-2 RNA (RT-PCR) NEGATIVE (Negative) Independent Interpretation I performed an independent interpretation of an: CT Scan Radiology Impression Discussion of test interpretation with radiology: I have reviewed the radiologist's reading. Independent Historian Clinical information obtained from an independent historian. History obtained from or confirmed by: EMS and Other (assisted staff) External Record Review External record reviewed: Inpatient record, Office record, Outpatient record, Prior outpatient labs, Prior outpatient radiology, Primary care record and Outside ED record Tests considered The following testing was considered but not selected: As above Chronic Conditions Patient?s care impacted by: Other Social Determinants Patient?s care significantly limited by Social Determinants of Health including: Inadequate housing, Low income, Problems related to primary support group, Unemployment and Other Social Determinant of Health Discharge Plan Discharge Clinical Impression: Breakthrough seizure Patient Disposition: Still a Patient Instructions: Epilepsy (DC) Additional Instructions: Blood work and head CT are reassuring Please have close follow-up with your neurologist Please continue all home prescribed medications, do not miss any doses of your seizure medications If you have recurrent or persistent seizures, develop fever please return to the ED immediately Your CT shows ear wax in both ears, please follow up with her primary care doctor & ENT specialist Prescriptions: No Action multivitamin Tablet 1 tab PO DAILY clonidine HCl 0.1 mg Tablet 0.1 mg PO BID acetaminophen [Mapap (acetaminophen)] 325 mg Tablet 650 mg PO Q6H PRN (Reason: Pain) benztropine 0.5 mg Tablet 0.5 mg PO BID evmxelswix-mzcodbvlmasgp-weld 50-325-40 mg Tablet 1 tab PO Q6H PRN (Reason: Headache) buspirone 10 mg Tablet 20 mg PO TID oxcarbazepine [Trileptal] 600 mg Tablet 600 mg PO TID diazepam [Valium] 10 mg Tablet 10 mg PO USEASDIRECTD PRN (Reason: PRIOR TO MD APPT) aripiprazole [Abilify] 5 mg Tablet 5 mg PO DAILY aripiprazole [Abilify] 2 mg Tablet 2 mg PO DAILY@14 bacitracin 500 unit/gram ointment 1 appl topical BID Qty: 14 0RF lacosamide 150 mg tablet PO acetaminophen 650 mg tablet extended release PO oxcarbazepine 600 mg tablet 600 mg PO TID Qty: 90 0RF lacosamide 150 mg tablet 150 mg PO TID Qty: 84 0RF [place] [facility] [place]Provider Group] [facility] [Outside] Chin Calzada MD [Primary Care Provider] - Print Language: Uzbek
[2024-08-29] MEDS: LORazepam 1 MG TABLET PO ×2 (10:51→12:54)
[2024-08-29 10:59] LABS: Albumin Level 4.5 g/dL (3.5-5.0); Alkaline Phosphatase 75 U/L (39-117); Anion Gap 9 (12-20); Aspartate Amino Transferase 24 U/L (5-37); Bilirubin Direct 0.1 mg/dL (0.0-0.5); Bilirubin Total 0.3 mg/dL (0.0-1.0); Blood Urea Nitrogen 19 mg/dL (9-16); Calcium 9.2 mg/dL (8.4-10.2); Carbon Dioxide 26 mmol/L (22-29); Chloride 106 mmol/L (96-108); Creatinine Clr Calc Pharmacy 149.6; Estimated Glomerular Filt Rate > 60; Glucose Random 108 mg/dL (60-115); Magnesium 2.1 mg/dL (1.6-2.6); Potassium 4.3 mmol/L (3.3-5.1); Sodium 137 mmol/L (135-145); Total Protein 7.4 g/dL (6.5-8.0)
[2024-08-29 11:09] LABS: Alanine Aminotransferase 45 U/L (0-40)
[2024-08-29 11:12] LABS: Influenza A PCR NEGATIVE (Negative); Influenza B PCR NEGATIVE (Negative); Resp Syncy Virus RNA Qual PCR NEGATIVE (Negative); SARS COV2 PCR INHOUSE NEGATIVE (Negative)
[2024-08-29 12:08] VITALS: BP 139/85; PULSE 91; RESP 14; O2SAT 98
[2024-08-29 13:44] LABS: Appearance Urine Clear; Color Urine Yellow; Glucose Urine UA Negative (Negative); Leukocyte Esterase Urine Negative (Negative); Nitrite Urine Negative (Negative); PH 5.5 (5.0-9.0); Specific Gravity - Urine 1.015 (1.005-1.025); Urine Blood Negative (Negative); Urine Ketones Negative (Negative); Urine Protein Negative (Neg-Trace)
[2024-08-29 14:03] VITALS: BP 139/85; PULSE 91; RESP 14; TEMP 37.3; O2SAT 98
[2024-09-03 11:08] LABS: Oxcarbazepine 23.8 mcg/mL (8.0-35.0)
== END 2024-08-29 14:04 | disposition home or self-care (01) ==
PROVIDERS: Physician Assistant; Emergency Provider Student in an Organized Health Care Education/Training Program; PCP Internal Medicine
DX: G40.909 Epilepsy, unspecified, not intractable, without status epilepticus (principal); R00.0 Tachycardia, unspecified; F84.0 Autistic disorder; F79 Unspecified intellectual disabilities; R50.9 Fever, unspecified; Z03.818 Encounter for observation for suspected exposure to other biological agents ruled out; Z59.10 Inadequate housing, unspecified; Z59.6 Low income
CPT/HCPCS: 0241U; 70450; 71045; 80048; 80076; 80339; 81003; 83735; 85025; 99283; 99284

== ENCOUNTER → 2024-08-29 10:16 | Outpatient (BNV) | payer OTHER, SELFPAY | PROVIDERS: Emergency Provider Student in an Organized Health Care Education/Training Program; PCP Internal Medicine; Visit Provider Radiology Diagnostic Radiology | DX: G40.89 Other seizures (principal); H61.21 Impacted cerumen, right ear; H61.22 Impacted cerumen, left ear | CPT/HCPCS: 70450; 71045 ==

== ENCOUNTER 2024-09-20 10:04 | Emergency (ER) | payer OTHER, SELFPAY ==
[2024-09-20 10:54] VITALS: BP 130/87; PULSE 88; RESP 16; TEMP 36.6; O2SAT 97; BMI 32.6
--- NOTE | 2024-09-20 12:14 | ED.GENADULT ---
HPI - General Adult General Chief complaint: General Medical Stated complaint: medication Time Seen by Provider: 09/20/24 11:05 Source: patient, RN notes reviewed and other (Staff members) Mode of arrival: ambulatory History of Present Illness ED Provider: Milena Vickers PA-C HPI narrative: This is a 34-year-old male, with a history of epileptic seizures, autism, intellectual disability, brain tumor/glioma, who presents emergency department accompanied by skilled nursing workers for medication refill. [facility] workers report that patient currently is on Vimpat 150mg TID for seizures. They state that patient's neurologist recently quit the facility therefore they have to find a new neurologist. Primary care physician does refill this medication however they called the primary care and this primary care physician is on vacation right now and is unable to refill this medication. Last dose of this medication was yesterday afternoon. No breakthrough seizures. He is acting his normal self per skilled nursing workers. No changes in mentation. MD complaint: Medication refill Related Data Home Medications ?Medication ?Instructions ?Recorded ?Confirmed acetaminophen 325 mg tablet (Mapap 650 mg PO Q6H PRN Pain 04/28/21 04/28/21 (acetaminophen)) aripiprazole 2 mg tablet (Abilify) 2 mg PO DAILY@14 04/28/21 04/28/21 aripiprazole 5 mg tablet (Abilify) 5 mg PO DAILY 04/28/21 04/28/21 benztropine 0.5 mg tablet 0.5 mg PO BID 04/28/21 04/28/21 buspirone 10 mg tablet 20 mg PO TID 04/28/21 04/28/21 xhiqtscara-jsegdmvnjagsa-ynhsineu 1 tab PO Q6H PRN Headache 04/28/21 04/28/21 50 mg-325 mg-40 mg tablet clonidine HCl 0.1 mg tablet 0.1 mg PO BID 04/28/21 04/28/21 diazepam 10 mg tablet (Valium) 10 mg PO USEASDIRECTD PRN PRIOR TO 04/28/21 04/28/21 MD APPT multivitamin 1 tab PO DAILY 04/28/21 04/28/21 oxcarbazepine 600 mg tablet 600 mg PO TID 04/28/21 04/28/21 (Trileptal) acetaminophen 650 mg mg PO 05/26/24 tablet,extended release lacosamide 150 mg tablet mg PO 05/26/24 Previous Rx's ?Medication ?Instructions ?Recorded bacitracin 500 unit/gram topical 1 appl topical BID #14 grams 05/11/22 ointment lacosamide 150 mg tablet 150 mg PO TID #84 tabs 05/26/24 oxcarbazepine 600 mg tablet 600 mg PO TID #90 tabs 05/26/24 lacosamide 150 mg tablet (Vimpat) 150 mg PO TID 30 days #90 tabs 09/20/24 Allergies Allergy/AdvReac Type Severity Reaction Status Date / Time No Known Allergies Allergy Verified 09/20/24 10:55 [No Known Allergies*] Review of Systems Review of Systems: Yes all other systems are reviewed and are negative [facility] Past Medical History Medical History Epileptic seizure Autism Seizures Social History Social History Alcohol intake: never Comment: skilled nursing staff at bedside Patient Tobacco Use Status: Never used Tobacco Advance Directives: No Advance Directives Information Provided: No Do you have a plan to hurt others: No Plan service: No Current occupational status: disabled Physical Exam ED Vital Signs: Vital Signs - 24 hr 09/20/24 10:54 Temperature 97.8 F Pulse Rate 88 Respiratory Rate 16 Blood Pressure 130/87 Pulse Oximetry 97 Oxygen Delivery Method Room Air BMI result Body Mass Index 32.6 General: Awake, alert. Healthy appearing, no acute distress. Limitation: Intellectual disability noted HEENT: Normal inspection CVS: Normal heart rate and rhythm. Pulses normal. Respiratory: No respiratory distress Skin: Warm, dry, no rashes noted to exposed skin. Normal skin color. Normal skin turgor. Extremities: Normal to inspection Neuro: Oriented X 3. No motor deficit. No sensory deficit. Medical Decision Making Medical Decision Making MDM Narrative: This is a 34-year-old male who presents emergency department for medication refill. He is currently on Vimpat 150mg TID for seizures. On arrival, vital signs within normal limits. He has had no changes in mentation or any breakthrough seizures. Last dose was yesterday afternoon. Will provide group staff with this medication refill. They will follow-up with the primary care physician next medication refill. He has an appointment with a new neurologist in November as previous recently quit the practice. Given strict return precautions. Stable for discharge Differential Diagnosis Differential Diagnoses: The differential diagnosis associated with the presentation includes Medication refill, seizure disorder, wellness check Discharge Plan Discharge Clinical Impression: Medication refill, Seizure disorder Patient Disposition: Home, Self-Care Instructions: Medicine Refill (ED) Additional Instructions: Raza was seen in the emergency department for med refill. We had refilled the Vimpat 150mg to be taken 3 times a day, which is the medication he has been on for several years. Please continue medication as prescribed. Please follow-up with the primary care physician and neurologist. If any new or worsening symptoms occur including but not limited to breakthrough seizures, changes in mentation, please seek emergent care. Prescriptions: New lacosamide [Vimpat] 150 mg tablet 150 mg PO TID 30 Days Qty: 90 0RF No Action multivitamin Tablet 1 tab PO DAILY clonidine HCl 0.1 mg Tablet 0.1 mg PO BID acetaminophen [Mapap (acetaminophen)] 325 mg Tablet 650 mg PO Q6H PRN (Reason: Pain) benztropine 0.5 mg Tablet 0.5 mg PO BID ekkydaudjt-tgdcfljufghuv-tyei 50-325-40 mg Tablet 1 tab PO Q6H PRN (Reason: Headache) buspirone 10 mg Tablet 20 mg PO TID oxcarbazepine [Trileptal] 600 mg Tablet 600 mg PO TID diazepam [Valium] 10 mg Tablet 10 mg PO USEASDIRECTD PRN (Reason: PRIOR TO MD APPT) aripiprazole [Abilify] 5 mg Tablet 5 mg PO DAILY aripiprazole [Abilify] 2 mg Tablet 2 mg PO DAILY@14 bacitracin 500 unit/gram ointment 1 appl topical BID Qty: 14 0RF lacosamide 150 mg tablet PO acetaminophen 650 mg tablet extended release PO oxcarbazepine 600 mg tablet 600 mg PO TID Qty: 90 0RF lacosamide 150 mg tablet 150 mg PO TID Qty: 84 0RF Print Language: Other
[2024-09-20 13:00] VITALS: BP 130/87; PULSE 88; RESP 16; TEMP 36.6; O2SAT 97
== END 2024-09-20 13:01 | disposition home or self-care (01) ==
PROVIDERS: Emergency Provider Emergency Medicine; PCP Internal Medicine
DX: Z76.0 Encounter for issue of repeat prescription (principal); G40.909 Epilepsy, unspecified, not intractable, without status epilepticus
CPT/HCPCS: 99282

== ENCOUNTER 2025-06-06 10:03 | Emergency (ER) | payer OTHER, SELFPAY ==
--- NOTE | ~2025-06-06 | CT_ITS ---
CLINICAL HISTORY: head injury CT head without contrast Comparison: CT/OR/SR - CT HEAD WITHOUT IV CONTRAST - 08/29/24 10:58 EST Findings: No intra-axial mass, midline shift, hydrocephalus, or acute hemorrhage. No significant atrophy-like change or white matter disease. Mild mucosal thickening within the left sphenoid sinus. No air-fluid levels. The orbits are within normal limits. There is no acute fracture. IMPRESSION: No skull fracture or intracranial hemorrhage. This document has been electronically signed by: Funmilayo Porter MD on 06/06/2025 13:37:20
[2025-06-06 10:05] VITALS: BP 134/85; BP 134/94; PULSE 107; PULSE 109; RESP 15; TEMP 37.3; O2SAT 95; O2SAT 97; BMI 33.8
[2025-06-06 10:10] VITALS: BP 134/85; PULSE 116; RESP 16; TEMP 37.3; O2SAT 95
--- NOTE | 2025-06-06 10:15 | ECG_ITS ---
Test Reason : SEIZURE Blood Pressure : */* mmHG Vent. Rate : 108 BPM Atrial Rate : 108 BPM P-R Int : 152 ms QRS Dur : 98 ms QT Int : 340 ms P-R-T Axes : * -28 -3 degrees QTcB Int : 455 ms Sinus tachycardia Nonspecific T wave abnormality Abnormal ECG When compared with ECG of 28-Apr-2021 23:06, QRS axis Shifted right Nonspecific T wave abnormality now evident in Inferior leads Referred By: Lillian Machado Electronically Signed By: KIRILL VALLE
[2025-06-06 10:16] VITALS: BP 134/85; PULSE 116; RESP 16; TEMP 37.3; O2SAT 95
--- NOTE | 2025-06-06 10:20 | ED.SEIZURE ---
HPI - Seizure General Chief Complaint: Seizure Stated Complaint: SZ Time Seen by Provider: 06/06/25 10:14 Source: patient, EMS and old records reviewed Mode of arrival: EMS Limitations: no limitations History of Present Illness ED Provider: DR. Machado HPI Narrative: 34-year-old male PMHx autism, seizure brought in for witnessed seizure by the staff, patient is compliant with his medication, there is no head trauma or falling after the seizure today, patient is complaining of no symptoms. Witnessed by the nurse at the alf to hit his head after the seizure. No fever, no chills. Seizure History: Yes Related Data Home Medications ?Medication ?Instructions ?Recorded ?Confirmed acetaminophen 325 mg tablet (Mapap 650 mg PO Q6H PRN Pain 04/28/21 04/28/21 (acetaminophen)) aripiprazole 2 mg tablet (Abilify) 2 mg PO DAILY@14 04/28/21 04/28/21 aripiprazole 5 mg tablet (Abilify) 5 mg PO DAILY 04/28/21 04/28/21 benztropine 0.5 mg tablet 0.5 mg PO BID 04/28/21 04/28/21 buspirone 10 mg tablet 20 mg PO TID 04/28/21 04/28/21 mymhgifxnz-ulnbfkmetorch-umtkprrk 1 tab PO Q6H PRN Headache 04/28/21 04/28/21 50 mg-325 mg-40 mg tablet clonidine HCl 0.1 mg tablet 0.1 mg PO BID 04/28/21 04/28/21 diazepam 10 mg tablet (Valium) 10 mg PO USEASDIRECTD PRN PRIOR TO 04/28/21 04/28/21 APPT multivitamin 1 tab PO DAILY 04/28/21 04/28/21 oxcarbazepine 600 mg tablet 600 mg PO TID 04/28/21 04/28/21 (Trileptal) acetaminophen 650 mg mg PO 05/26/24 tablet,extended release lacosamide 150 mg tablet mg PO 05/26/24 Previous Rx's ?Medication ?Instructions ?Recorded bacitracin 500 unit/gram topical 1 appl topical BID #14 grams 05/11/22 ointment lacosamide 150 mg tablet 150 mg PO TID #84 tabs 05/26/24 oxcarbazepine 600 mg tablet 600 mg PO TID #90 tabs 05/26/24 lacosamide 150 mg tablet (Vimpat) 150 mg PO TID 30 days #90 tabs 09/20/24 Allergies Allergy/AdvReac Type Severity Reaction Status Date / Time No Known Allergies (No Known Allergy Verified 06/06/25 10:12 Allergies*) Review of Systems Review of Systems: All other systems are reviewed and are negative Constitutional: Reports as per HPI and Reports no additional constitutional complaints Eyes: Reports as per HPI and Reports no additional eye complaints Reports system reviewed and no additional complaints, except as documented Cardiovascular: Reports as per HPI and Reports no additional cardiovascular complaints Respiratory: Reports as per HPI and Reports no additional respiratory complaints Gastrointestinal: Reports as per HPI and Reports no additional gastrointestinal complaints Genitourinary: Reports no additional female genitourinary complaints Musculoskeletal: Reports no additional musculoskeletal complaints Skin/Breast: Reports system reviewed and no additional complaints, except as docu Psychiatric: Reports no additional psychiatric complaints Endocrine: Reports no additional endocrine complaints Hematologic/Lymphatic: Reports no additional hematologic/lymphatic complaints Allergic/Immunologic: Reports no additional allergic/immunologic complaints Reports system reviewed and no additional complaints, except as documented and Reports Abnormal speech present [facility] Past Medical History Medical History Epileptic seizure Autism Seizures Social History Social History Alcohol intake: never Comment: retirement staff at bedside Patient Tobacco Use Status: Never used Tobacco service: No Current occupational status: disabled Physical Exam Vital Signs: Vital Signs: Last Vital Signs Temp 99.1 F 06/06/25 10:16 Pulse 116 H 06/06/25 10:16 Resp 16 06/06/25 10:16 BP 134/85 06/06/25 10:16 Pulse Ox 95 06/06/25 10:16 O2 Del Method Room Air 06/06/25 10:16 BMI result Body Mass Index 33.8 Vital signs have been reviewed and appear to be correct. Blood pressure elevated. Heart rate elevated. Respiratory rate normal. Temperature normal. Oxygen saturation normal. Appearance: Alert. Oriented X3. No acute distress. Head: Normal external exam. Normocephalic. Atraumatic. No Baesley signs noted. No raccoon eyes noted Eyes: PERRLA. EOMI. Conjunctiva and sclera normal. Eyelids normal. ENT: TM's Normal. Pharynx normal. Uvula midline. Moist mucous membranes. No trismus noted. No drooling noted. No muffled voice noted. Neck: Normal inspection. Neck supple. FROM. No adenopathy. Thyroid Normal. No meningeal signs. No neck mass noted. CVS: Normal heart rate and rhythm. Heart sound normal. No murmurs noted. Pulses normal throughout. Respiratory: No respiratory distress. Painless inspiration. Breath sounds normal. No wheezes/rales/rhonchi noted. Chest nontender. No accessory muscle usage noted or decreased air movement noted. Abdomen: Soft and nontender. Bowel sounds normal in all 4 quadrants. No distention noted. No organomegaly noted. No visible injury noted. Back: No CVA tenderness. Full range of motion noted. Skin: Skin warm and dry. Normal skin color. Normal skin turgor. No rashes/lesions/lacerations noted. Extremities: No lower extremity edema. Extremities exhibit normal range of motion. Extremities nontender. Neuro: Mental status: Normal attention, orientation, memory, and affect. Cranial nerves: Pupils are equal, round and reactive to light, EOMI, visual lemons are fall, face is symmetric, facial sensations are normal. Motor examination normal muscle tone, strength to 4 extremities. DTR are +2, planter's are flexor. Sensory exam; normal coordination, no ataxia, gait stable. Cerebellar exam: Hxiwex-cg-dgae and hbyb-kh-ywmj is normal. Extrapyramidal system: No tremors, no rigidity with normal facial expressions. Pronator drift not present Course Reevaluation(s) Reevaluation #1: Seizure patient at his baseline neuro exam, head CTs unremarkable for acute pathology, labs are unremarkable will discharge back to the retirement. Time: 12:30 Medical Decision Making Differential Diagnosis Differential Diagnoses: The differential diagnosis associated with the presentation includes (Seizure, electrolyte derangement, intracranial pathology.) Admission/Observation Consideration of admission/observation: Escalation of care including admission/observation considered Lab Data MDM Lab Attestation statement: I reviewed the patient's lab results. Independent Interpretation I performed an independent interpretation of an: CT Scan (Head: No acute intracranial pathology.) Radiology Impression Discussion of test interpretation with radiology: I have reviewed the radiologist's reading. Discharge Plan Discharge Clinical Impression: Seizure disorder Patient Disposition: [facility] Instructions: Epilepsy (ED) Prescriptions: No Action multivitamin Tablet 1 tab PO DAILY clonidine HCl 0.1 mg Tablet 0.1 mg PO BID acetaminophen [Mapap (acetaminophen)] 325 mg Tablet 650 mg PO Q6H PRN (Reason: Pain) benztropine 0.5 mg Tablet 0.5 mg PO BID eeaxphzjlc-euxalujtrqqef-fhko 50-325-40 mg Tablet 1 tab PO Q6H PRN (Reason: Headache) buspirone 10 mg Tablet 20 mg PO TID oxcarbazepine [Trileptal] 600 mg Tablet 600 mg PO TID diazepam [Valium] 10 mg Tablet 10 mg PO USEASDIRECTD PRN (Reason: PRIOR TO MD APPT) aripiprazole [Abilify] 5 mg Tablet 5 mg PO DAILY aripiprazole [Abilify] 2 mg Tablet 2 mg PO DAILY@14 bacitracin 500 unit/gram ointment 1 appl topical BID Qty: 14 0RF lacosamide [Vimpat] 150 mg tablet 150 mg PO TID 30 Days Qty: 90 0RF lacosamide 150 mg tablet PO acetaminophen 650 mg tablet extended release PO oxcarbazepine 600 mg tablet 600 mg PO TID Qty: 90 0RF lacosamide 150 mg tablet 150 mg PO TID Qty: 84 0RF Print Language: Other
--- NOTE | 2025-06-06 10:33 | MHC.EDTECH ---
ekg done transmitted, notice the error of lead placement, repeated the ekg the second one with order is the correct one. Left a note. MD /RN aware pending ekg department for the correction to be fix.
--- OUTSIDE RECORDS SUMMARY | 2025-06-06 10:38 | XMS_ITS | Clinical Summary ---
Author Organization [facility] [address] [facility] Address [address] [place] [phone] Phone Care Team Providers Care [employer] Name Role Phone Chin Calzada MD Primary Care Provider Allergies Active Allergy Reactions Criticality Noted Date Comments Pollen Extracts Other 06/20/2024 Medications acetaminophen (TYLENOL 8 HOUR) 650 mg 8 hr tablet Take 1 tablet (650 mg total) by mouth every 6 (six) hours if needed for mild pain. fever 4 Active ARIPiprazole (ABILIFY) 2 mg tablet Take 1 tablet (2 mg total) by mouth 1 (one) time each day if needed. (agitation). 1 Active ARIPiprazole (ABILIFY) 5 mg tablet Take 1 tablet (5 mg total) by mouth 1 (one) time each day. 1 Active benztropine (COGENTIN) 0.5 mg tablet Take 1 tablet (0.5 mg total) by mouth 2 (two) times a day. 5 Active buspirone HCl (BUSPIRONE ORAL) Take 20 mg by mouth 3 (three) times a day. Active multivitamin with iron (DAILY MULTI-VITAMINS/ IRON ORAL) Take 1 tablet by mouth 1 (one) time each day in the morning. 4 Active triamcinolone (KENALOG) 0.1 % cream Apply topically 2 (two) times a day if needed for irritation or rash. For up to 2 weeks 4 Active butalbital-acet aminophen-caffe ine (FIORICET, ESGIC) 50-325-40 mg per tablet Take 1 tablet by mouth 1 (one) time each day if needed for headaches. Active cloNIDine (CATAPRES) 0.1 mg tablet Take 1 tablet (0.1 mg total) by mouth 2 (two) times a day. Active lacosamide (Vimpat) 150 mg tablet tablet Take 1 tablet (150 mg total) by mouth 3 (three) times a day for 14 days. Max Daily Amount: 450 mg 42 tablet 5 Active OXcarbazepine (TRILEPTAL) 600 mg tablet Take 1 tablet (600 mg total) by mouth 3 (three) times a day for 14 days. 42 tablet 5 Active Thera 400 mcg tablet TAKE 1 TABLET BY MOUTH DAILY IN THE MORNING (MULTIVITAMIN) 30 tablet 5 Active Active Problems Problem Noted Date Diagnosed Date Autism 06/20/2024 Intellectual disability 06/20/2024 Seizure disorder ([facility] V24, [facility] V28) 1012/2023 Anxiety disorder 04/27/2023 Nonverbal 01/04/2017 Glioma of brain ([facility] V24, [facility] V28) 06/20 Overview (06/20/2024): 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 2011 MRI unchanged from 2008 Immunizations Name Administration Dates Next Due Influenza Quadravalent, MDCK , 0.5ml, preservative free (Flucelvax) 6mo and older 07/24/2019 Influenza Quadravalent, MDCK , 0.5ml, with preservative (Flucelvax) 6mo and older 07/08/2017 Influenza trivalent, MDCK, 0 .5mL, preservative free (Flucelvax) 6mo and older 07/30/2024 Influenza trivalent, with preservative (Fluzone; Afluria) 6mo and older 07/18/2016,07/12/2015,2014,2011,08/13/2011,07/21/2010 Td Tetanus diptheria (Tdvax) 7yo and older 03/31/2013 Surgical History Surgery Date Site/Laterality Comments OTHER SURGICAL HISTORY PROCEDURE: DENIES PREVIOUS SURGERY Medical History Medical History Date Comments Seizure disorder (CMS/HCC V2 4, CMS/HCC V28) DX:Seizure disorder (HCC) Autism DX:Autism Mental retardation DX:Mental ret ardation History of benign brain tumor DX :History of benign brain tumor; COMMENT: glioma Family History Medical History Relation Name Comments Breast cancer Neg Hx Colon cancer Neg Hx Ovarian cancer Neg Hx Relation Name Status Comments Mother Alive Social History Tobacco Use Types Packs/Day Years Used Date Smoking Tobacco: Never Smokeless Tobacco: Never Tobacco Cessation:Counseling Given: Not Answered Alcohol Use Standard Drinks/Week Comments No 0 (1 standard drink = 0.6 oz pur e alcohol) Sex and Gender Information Value Date Recorded Sex Assigned at Not on file Legal Sex Male 1:46 AM EST Gender Identity Not on file Sexual Orientation Not on file Obstetrics History Last Filed Vital Signs Vital Sign Reading Time Taken Comments Blood Pressure 130/86 11/10/2024 1:37 PM EST Provider will rechk Pulse 93 11/10/2024 1:37 PM EST Temperature 36.3 C (97.3 F) 11/10/2024 1:37 PM EST Respiratory Rate 16 11/10/2024 1:37 PM EST Oxygen Saturation 98% 11/10/2024 1:3 7 PM EST Inhaled Oxygen Concentration - - Weight 115 kg (253 lb 3.2 oz) 11/10/2024 1:37 PM EST Height 180.3 cm (5' 11 ) 11/10/2024 1:3 7 PM EST Body Mass Index 35.31 11/10/2024 1:37 PM EST Plan of Treatment Health Maintenance Due Date Last Done Comments COVID-19 Vaccine (#1) 1993 Hepatitis B Vaccines (1 of 3 - 19+ 3-dose series) 2007 Pneumococcal Vaccine: Pediatrics (0 to 5 Years) and At-Risk Patients (6 to 49 Years) (1 of 2 - PCV) 2007 HIV Screening 08/26/2022 Hepatitis C Screening 08/26/2022 Social Influencers of Health Screening 08/26/2022 Cholesterol Screening (Lipid Panel) 07/24/2024 07/24/2019, 07/24/2019 Depression Screening 09/17/2024 06/15/2020 Influenza Vaccine (#1) 2025 4, 07/24/2019, 07/08/2017, Additional history exists DTaP,Tdap,and Td Vaccines (2 - Td or Tdap) 07/18/2026 03/31/2013 Postponed from 03/31/2023 (Not clinically appropriate to address at this time) HIB Vaccines Aged Out No longer eligi ble based on patient's age to complete this topic HPV Vaccines Aged Out No longer eligi ble based on patient's age to complete this topic Hepatitis A Vaccines Aged Out No long er eligible based on patient's age to complete this topic IPV Vaccines Aged Out No longer eligi ble based on patient's age to complete this topic MMR Vaccines Aged Out No longer eligi ble based on patient's age to complete this topic Meningococcal ACWY Vaccine Aged Out N o longer eligible based on patient's age to complete this topic Meningococcal B Vaccine Aged Out No l onger eligible based on patient's age to complete this topic RSV Immunization Patients Under 20 months Aged Out No longer eligible b ased on patient's age to complete this topic Varicella Vaccines Aged Out No longer eligible based on patient's age to complete this topic Procedures Procedure Name Priority Date/Time Associated Diagnosis Comments DEPRESSION SCREENING Routine 06/15/2020 LIPID PANEL Routine 07/24/2019 from Last 3 Months or Most Recently Relevant to Health Maintenance Results * Depression Screening (06/15/2020) Depression Screening done Historical Provider HEALTH MAINTENANCE Final Result * (ABNORMAL) Lipid panel (07/24/2019) LDL/HDL Ratio 6(A) 0 - 4 Triglycerides 302(A) 0 - 150 mg/dL Cholesterol 208(A) 0 - 200 mg/dL HDL 110(A) 0 - 100 mg/dL LDL Cholesterol 110(A) 0 - 100 mg/dL Blood Venous blood specimen / Unknown Historical Provider LAB BLOOD ORDERABLES Whitney l Result from Last 3 Months or Most Recently Relevant to Health Maintenance Insurance [facility] Care Teams [employer] Relationship Specialty Start Date End Date Chin Calzada MD [address] [place] [phone] PCP - General Internal Medicine 09/17/23
--- OUTSIDE RECORDS SUMMARY | 2025-06-06 10:38 | XMS_ITS ---
Author Name [facility] Organization Unknown Care Team Organization Name Specialty Phone Email Start Date End Da te [facility] Chin Calzada Primary Care 12/19/202204/17 [facility] MEHREEN RAPHAEL Primary Care 07/25/20222023
--- NOTE | 2025-06-06 10:40 | PC.NURSE ---
34 M presents to ED after a seizure, fall with head strike. Pt is A+OX1 to self, answers some questions, mostly nonverbal. Pt is acting baseline per sending fpc. RR even and unlabored, denies CP or SOB. Pt c/o some pain in his right shoulder. Pt calm, cooperative. No visible s/s of distress.
[2025-06-06 10:42] LABS: MANUAL DIFF FLAG NO
--- NOTE | 2025-06-06 10:43 | PC.NURSE ---
This RN was able to talk with nurse from [facility]. She stated that it was witness by staff, was his baseline seizure per staff. his protocol is to call EMS after seizing for 5 minutes, which they report he did not, however he did hit his head on the chair that he sits in. Nurse reports he has been taking his medications, he takes 3 for seizures, MD made aware at this time. CT head ordered.
[2025-06-06 10:44] LABS: Hematocrit 46.7 % (42.0-52.0); Hemoglobin 16.0 g/dl (14.0-18.0); Imm Gran Abs Auto 0.07 X10*3/uL (0.00-0.03); Imm Gran Pct Auto 1.2 % (0.0-0.4); Lymphocytes Absolute Auto 1.3 X10*3/uL (1.2-4.9); Mean Corpuscular HGB Conc 34.3 g/dl (31.0-36.0); Mean Corpuscular Hemoglobin 27.0 pg (27.0-33.0); Mean Corpuscular Volume 78.9 fL (80.0-98.0); NRBC Abs Auto 0.000 X10*3/uL (0.0-0.012); NRBC Pct Auto 0.0 /100WBC (0.0-0.2); Platelet Count 246 X10*3/uL (160-400); Red Blood Count 5.92 X10*6/uL (4.60-5.80); White Blood Count 6.0 X10*3/uL (4.8-10.8)
[2025-06-06 11:08] LABS: Alanine Aminotransferase 48 U/L (0-40); Albumin Level 4.7 g/dL (3.5-5.0); Alkaline Phosphatase 83 U/L (39-117); Anion Gap 13 (12-20); Aspartate Amino Transferase 27 U/L (5-37); Blood Urea Nitrogen 19 mg/dL (9-16); Calcium 9.2 mg/dL (8.4-10.2); Carbon Dioxide 23 mmol/L (22-29); Chloride 106 mmol/L (96-108); Creatinine Clr Calc Pharmacy 143.6; Estimated Glomerular Filt Rate > 60; Magnesium 2.1 mg/dL (1.6-2.6); Potassium 4.0 mmol/L (3.3-5.1); Sodium 138 mmol/L (135-145); Total Protein 7.5 g/dL (6.5-8.0)
[2025-06-06 11:43] VITALS: BP 130/85; PULSE 99; RESP 18; TEMP 36.7; O2SAT 98
[2025-06-06 13:47] VITALS: BP 129/78; PULSE 101; RESP 20; TEMP -17.7; TEMP 0; O2SAT 99
== END 2025-06-06 13:52 | disposition skilled nursing facility (03) ==
PROVIDERS: Emergency Provider Emergency Medicine
DX: R56.9 Unspecified convulsions (principal); R51.9 Headache, unspecified; R00.0 Tachycardia, unspecified; R94.31 Abnormal electrocardiogram [ECG] [EKG]; Z79.899 Other long term (current) drug therapy
CPT/HCPCS: 36415; 70450; 80053; 83735; 85025; 93005; 99284

== ENCOUNTER → 2025-06-06 10:15 | Outpatient (BNV) | payer OTHER, SELFPAY | PROVIDERS: Emergency Provider Emergency Medicine; Visit Provider Internal Medicine | DX: R00.0 Tachycardia, unspecified (principal) | CPT/HCPCS: 93010 ==

== ENCOUNTER → 2025-06-06 10:29 | Outpatient (BNV) | payer OTHER, SELFPAY | PROVIDERS: Emergency Provider Emergency Medicine; Visit Provider Radiology Diagnostic Radiology | DX: S09.90XA Unspecified injury of head, initial encounter (principal) | CPT/HCPCS: 70450 ==